=== PATIENT | female | born 1950 | race Caucasian/White ===

== ENCOUNTER 2017-08-04 07:55 | Inpatient (IN) | payer MEDICARE, OTHER ==
[~2017-08-04] VITALS: Ht 167.6 cm; Wt 100.0 kg
[2017-08-04] MEDS ORDERED: DICYCLOMINE 20 MG INJ IM ONE (08:00)
[2017-08-04] MEDS ORDERED: ONDANSETRON 4 MG INJ IV STA (08:00)
[2017-08-04] MEDS ORDERED: KETOROLAC 15 MG INJ IV STA (08:00)
[2017-08-04] MEDS ORDERED: ACETAMINOPHEN 325 MG TAB PO ONE (08:00)
[2017-08-04] MEDS ORDERED: SOD CHLORIDE 0.9% 1,000 ML IV STA (08:00)
--- NOTE | 2017-08-04 08:12 | ERD ---
ER Documentation Chief Complaint Chief Complaint NAUSEA AND VOMITING WITH FEVERS SINCE LAST NIGHT. NO COUGH OR CONGESTION HPI This is a 66-year-old female who is a very poor and limited historian. She has a history of diabetes appears to be [id number]. The patient presents with less than 24 hours of nonbloody nonbilious emesis with fevers, myalgias. She denies any recent travel, sick contacts, antibiotics. The patient describes occasional crampy abdominal pain. She states flu vaccination 2 weeks ago. She denies any cough or shortness of breath, no chest pain. No diarrhea or constipation. ROS All systems reviewed and are negative except as per history of present illness. Medications Home Meds Reported Medications Valsartan* (Diovan*) 160 Mg Tablet, 160 MG PO DAILY, TAB 08/04/17 Canagliflozin (Invokana) 100 Mg Tablet, 100 MG PO DAILY, TAB 08/04/17 Linagliptin (TRADJENTA) 5 Mg Tablet, 5 MG PO DAILY, TAB 08/04/17 Glipizide* (Glipizide*) 5 Mg Tablet, 5 MG PO BID, TAB 08/04/17 Metformin* (Glucophage*) 1,000 Mg Tablet, 1000 MG PO BID, #60 TAB 08/04/17 Allergies Allergies: Coded Allergies: No Known Drug Allergies (Verified Allergy, Unknown, 08/04/17) PMhx/Soc Diabetes FmHx Family History: diabetes Physical Exam Vitals Vital Signs Date Time Temp Pulse Resp B/P Pulse Ox O2 Delivery O2 Flow Rate FiO2 08/04/17 09:26 100.5 89 121/61 94 Room Air 08/04/17 08:02 101.7 102 18 130/88 93 Physical Exam General: Slightly uncomfortable Head: Normocephalic, atraumatic. Eyes: Pupils equally reactive, EOM intact ENT: Dry mucous membranes Neck: Supple, no lymphadenopathy Respiratory: Lungs clear bilaterally, no distress Cardiovascular: RRR, no murmurs, rubs, or gallops Abdominal: Soft, non-tender, non-distended, no peritoneal signs no tenderness to McBurney's point, negative Cruz sign : Deferred MSK: No edema, no unilateral swelling, 5/5 strength Neurologic: Alert and oriented, moving all extremities, normal speech, no focal weakness, no cerebellar signs Skin: No rash Psych: Normal mood Result Diagram: 08/04/17 0815 08/04/17 0815 Results 24 hrs Laboratory Tests Test 08/04/17 08:15 08/04/17 08:30 08/04/17 10:05 White Blood Count 1.710^3/ul Red Blood Count 4.4710^6/ul Hemoglobin 13.2g/dl Hematocrit 40.4% Mean Corpuscular Volume 90.4fl Mean Corpuscular Hemoglobin 29.5pg Mean Corpuscular Hemoglobin Concent 32.7g/dl Red Cell Distribution Width 13.0% Platelet Count 03556^3/UL Mean Platelet Volume 10.6fl Neutrophils % % Segmented Neutrophils % (Manual) 39% Band Neutrophils % (Manual) 32% Lymphocytes % % Lymphocytes % (Manual) 28% Reactive Lymphocytes % (Manual) 2% Monocytes % % Eosinophils % % Basophils % % Nucleated Red Blood Cells % 1% Neutrophils # 10^3/ul Neutrophils # (Manual) 0.710^3/ul Band Neutrophils # 0.510^3/ul Absolute Lymphocytes (Manual) 0.410^3/ul Lymphocytes # 10^3/ul Reactive Lymphocytes # 0.010^3/ul Monocytes # 10^3/ul Eosinophils # 10^3/ul Basophils # 10^3/ul Nucleated Red Blood Cells # 10^3/ul Platelet Estimate NORMAL Platelet Morphology Comment @See below Polychromasia 3+ Sodium Level 140mmol/L Potassium Level 4.0mmol/L Chloride Level 105mmol/L Carbon Dioxide Level 20mmol/L Anion Gap 19 Blood Urea Nitrogen 18mg/dl Creatinine 0.92mg/dl Glucose Level 238mg/dl Calcium Level 9.2mg/dl Total Bilirubin 1.0mg/dl Direct Bilirubin 0.00mg/dl Indirect Bilirubin 1.0mg/dl Aspartate Amino Transf (AST/SGOT) 47IU/L Alanine Aminotransferase (ALT/SGPT) 67IU/L Alkaline Phosphatase 86IU/L Total Protein 6.9g/dl Albumin 3.6g/dl Globulin 3.30g/dl Albumin/Globulin Ratio 1.09 Lipase 92U/L Lactic Acid Level 3.9mmol/L Urine Color YELLOW Urine Clarity SLIGHTLY CLOUDY Urine pH 5.0 Urine Specific [place] 1.017 Urine Ketones TRACEmg/dL Urine Nitrite POSITIVEmg/dL Urine Bilirubin NEGATIVEmg/dL Urine Urobilinogen NEGATIVEmg/dL Urine Leukocyte Esterase 1+Debra/ul Urine Microscopic RBC 3/HPF Urine Microscopic WBC 47/HPF Urine Squamous Epithelial Cells FEW/HPF Urine Bacteria FEW/HPF Urine Hemoglobin 2+mg/dL Urine Glucose 3+mg/dL Urine Total Protein 1+mg/dl Current Medications Medications (Trade) Dose Ordered Sig/Lili Route PRN Reason Start Time Stop Time Status Last Admin Dose Admin Sodium Chloride (NS) 1,000 ml @ 1,000 mls/hr Q1H STAT IV 08/04/17 08:00 08/04/17 08:59 DC 08/04/17 08:22 Ondansetron HCl (Zofran Inj) 4 mg ONCE STAT IV 08/04/17 08:00 08/04/17 08:04 DC 08/04/17 08:21 Ketorolac Tromethamine (Toradol) 15 mg ONCE STAT IV 08/04/17 08:00 08/04/17 08:04 DC 08/04/17 08:21 Dicyclomine HCl (Bentyl) 10 mg ONCE ONCE IM 08/04/17 08:00 08/04/17 08:04 DC 08/04/17 09:35 Acetaminophen (Tylenol Tab) 650 mg ONCE ONCE PO 08/04/17 08:00 08/04/17 08:04 DC 08/04/17 08:21 Sodium Chloride 1810 ml 1,810 ml BOLUS OVER 2 HOURS STAT IV* 08/04/17 08:36 08/04/17 08:38 DC 08/04/17 09:25 Cefepime HCl (Maxipime 1gm/50 ml (Pmx)) 50 ml @ 100 mls/hr ONCE ONCE IVPB 08/04/17 09:00 08/04/17 09:33 DC 08/04/17 10:18 Ondansetron HCl (Zofran Inj) 4 mg BRIDGE ORDER PRN IV NAUSEA AND/OR VOMITING 08/04/17 12:00 08/05/17 11:59 Acetaminophen (Tylenol Tab) 650 mg ER BRIDGE PRN PO MILD PAIN/FEVER 08/04/17 12:00 08/05/17 11:59 Procedures/MDM EKG, MONITORS, & DIAGNOSTIC IMAGING: Chest x-ray: I reviewed and interpreted a 1 view of the chest Mediastinum: No enlargement Cardiac silhouette: No cardiomegaly Airspace: Clear lung mi bilaterally without evidence of pneumothorax Bones: No evidence of fracture CT abdomen and pelvis: Preliminary read by Dr. Rendon reveals possible pyelonephritis but no other acute intra-abdominal process LAB INTERPRETATION: Neutropenia is noted with leukopenia and ANC significantly low, no blasts, normal hemoglobin and platelets. Lactic acid elevation, urinary tract infection MEDICAL DECISION MAKING: This patient presents with fever, myalgias, nausea and vomiting. I believe her constellation her symptoms are consistent with likely viral process or influenza -like illness. However, given the patient's age, history of diabetes, atypical infection in the abdomen may be present this way. I believe the patient will benefit from laboratory testing, diagnostic imaging including CT imaging of the abdomen and pelvis. Symptom control with antipyretics, fluids and nausea control be reasonable. ER COURSE: The patient was found to have leukopenia and neutropenia. Given her fever this is consistent with neutropenic fever. This is possibly related to viral suppression. However, given these findings I believe inpatient hospitalization is appropriate. I spoke to Dr. Messer, who recommended peripheral smear. I spoke to the laborer laboratory who will order this for pathology review. She agrees that this is most likely viral suppression but recommends close observation and trending at this point. Empiric antibiotics provided in the form of cefepime. The patient was also found to have a urinary tract infection with elevated lactic acid. This is consistent with severe sepsis. The patient' s blood pressure has remained stable. She does not meet criteria for septic shock. The patient was provided with a 30 cc/kg bolus of saline, antipyretics, antibiotics and she will be hospitalized for further investigation, culture monitoring. The patient was advised and is agreeable. She is mentating well at this point. I kept the patient and/or family informed of laboratory and diagnostic imaging results throughout the emergency room course. DISPOSITION PLAN: Medical surgical admission CONSULTATION: Accepting care team and consultations: I discussed the current laboratory data, diagnostic imaging and emergency care provided. Admitting team: Dr. Boss Admitting team indication: Insurance directed Consulting services: Hematology oncology Dr. Messer Sepsis Documentation: Patient's infectious symptoms have not stabilized and the patient is at risk of rapid decompensation. The patient will be admitted for careful hydration, antibiotic therapy, and infectious source control. SEVERE SEPSIS CRITERIA: Infectious source: Urinary tract infection End organ damage indicated by: [Lactate > 2.0 mmol/L SEPSIS MANAGEMENT Time of recognition of severe sepsis/septic shock: 10:53 AM once urinalysis resulted 3 HOUR BUNDLE Blood cultures x 2 before broad-spectrum antibiotics: Yes 30 ml/kg NS bolus Completed Initial lactate greater than 3 Repeat lactate pending repeat SEPTIC SHOCK ASSESSMENT: No lactic acid > 4.0 No persistent hypotension (SBP < 90 or 40 mmHg drop, MAP < 65) despite 30 mL/kg IV fluid bolus VOLUME REASSESSMENT FOR SEPTIC SHOCK: Reevaluation Time: 11:30 AM Temperature of 100.5, heart rate 89 blood pressure 121/61 pulse ox 94 Heart Regular rate & rhythm Lungs No crackles Skin Warm & dry Cap Refill Less than 2 seconds Peripheral pulses Radially present PERSISTENT HYPOTENSION TREATMENT: Comfort care No Central line Not Required Vasopressor started Not required I considered further perfusion assessment with CVP measurement, SCVO2, bedside ultrasound volume assessment, passive leg raise, trial of further fluid bolus. And proceeded with 30 ml/kg fluid bolus of NSS, broad spectrum antbiotics, and admission. CRITICAL CARE Critical care time 41 minutes Emergent fluid management while maintaining close respiratory support. Provision of immediate and broad-spectrum antibiotic therapy. Simultaneous assessment for possible sources in order to direct targeted therapy. Consideration for invasive and chemical support to prevent cardiopulmonary collapse. Critical care time is independent of procedures performed. Departure Diagnosis: Primary Impression: Nausea and vomiting Vomiting type: unspecified Vomiting Intractability: non-intractable Qualified Code: R11.2 - Non-intractable vomiting with nausea, unspecified vomiting type Additional Impressions: Neutropenia Neutropenia type: unspecified Qualified Code: D70.9 - Neutropenia, unspecified type Severe sepsis Urinary tract infection Urinary tract infection type: acute pyelonephritis Qualified Code: N10 - Acute pyelonephritis Condition: Stable JOANN DE JESUS MD Aug 04, 2017 08:12
[2017-08-04 08:22] LABS: ABNORMAL IP MESSAGE 1; HEMATOCRIT 40.4 % (37.0-47.0); HEMOGLOBIN 13.2 g/dl (12.0-16.0); MEAN CORPUSCULAR HEMOGLOBIN 29.5 pg (29.0-33.0); MEAN CORPUSCULAR HGB CONC 32.7 g/dl (32.0-37.0); MEAN CORPUSCULAR VOLUME 90.4 fl (82.0-101.0); MEAN PLATELET VOLUME 10.6 fl (7.4-10.4); PLATELET COUNT 148 10^3/UL (140-415); RED BLOOD COUNT 4.47 10^6/ul (4.20-5.40); WHITE BLOOD COUNT 1.7 10^3/ul (4.8-10.8)
[2017-08-04 08:23] LABS: POSITIVE DIFF @See below
[2017-08-04] MEDS ORDERED: SODIUM CHLORIDE 0.9% 1L BAG IV* STA (08:36)
--- NOTE | 2017-08-04 08:42 | RADRPT ---
PROCEDURE: XR Chest. CLINICAL INDICATION: fever TECHNIQUE: Single frontal view of the chest was obtained COMPARISON: None FINDINGS: The heart and mediastinum are within normal limits. There is mild patchy bibasilar atelectasis. The lungs are otherwise clear. There is no pleural effusion or pneumothorax. The bones and soft tissue show no acute change. IMPRESSION: Mild patchy bibasilar atelectasis. Otherwise, no significant abnormalities are identified. RPTAT:AAJJ Physician Yoel Date Time Electronically viewed and signed by Zechariah Mandujano Physician on 08/04/2017 08:42 /
[2017-08-04 08:45] LABS: ALBUMIN 3.6 g/dl (3.3-4.9); ALBUMIN/GLOBULIN RATIO 1.09; CALCIUM 9.2 mg/dl (8.4-10.2); CREATININE 0.92 mg/dl (0.44-1.00); TOTAL PROTEIN 6.9 g/dl (6.1-8.1)
[2017-08-04 08:55] LABS: ERYTHROBLAST% (NRBC) (M) 1 % (0-0); PLATELET ESTIMATE NORMAL; POLYCHROMASIA 3+ (0-0); REACTIVE LYMPHOCYTES% (M) 2 % (0-0)
[2017-08-04] MEDS ORDERED: CEFEPIME 1GM/50 ML (PMX) 50 ML IVPB ONE (09:00)
[2017-08-04 10:53] LABS: ADD UMIC YES; UR ASCORBIC ACID NEGATIVE (NEGATIVE); UR BACTERIA FEW /HPF (NONE SEEN); UR BILIRUBIN (Dip) NEGATIVE (NEGATIVE); UR BLOOD (Dip) 2+ mg/dL (NEGATIVE); UR CLARITY SLIGHTLY CLOUDY (CLEAR); UR COLOR YELLOW (YELLOW); UR GLUCOSE (Dip) 3+ mg/dL (NEGATIVE); UR KETONES (Dip) TRACE mg/dL (NEGATIVE); UR LEUKOCYTE ESTERASE (Dip) 1+ Leu/ul (NEGATIVE); UR NITRITE (Dip) POSITIVE (NEGATIVE); UR RBC 3 /HPF (0-5); UR SPECIFIC GRAVITY (Dip) 1.017 (1.003-1.030); UR SQUAMOUS EPITHELIAL CELL FEW /HPF (FEW); UR TOTAL PROTEIN (Dip) 1+ mg/dl (NEGATIVE); UR UROBILINOGEN (Dip) NEGATIVE (NEGATIVE)
[2017-08-04] MEDS ORDERED: GLIP5TAB13 PO (11:00)
[2017-08-04] MEDS ORDERED: MTF1000T PO (11:00)
[2017-08-04] MEDS ORDERED: LINA5TAB PO (11:00)
[2017-08-04] MEDS ORDERED: CANA100T PO (11:00)
[2017-08-04] MEDS ORDERED: VALS160T20 PO (11:01)
[2017-08-04] MEDS ORDERED: ONDANSETRON 4 MG INJ IV PRN (12:00)
[2017-08-04] MEDS ORDERED: ACETAMINOPHEN 325 MG TAB PO PRN (12:00)
--- NOTE | 2017-08-04 12:37 | HP ---
Date/Time of Note Date/Time of Note DATE: 08/04/17 TIME: 12:37 Assessment/Plan VTE Prophylaxis VTE Prophylaxis Intervention: SCD's Assessment/Plan Chief Complaint/Hosp Course 66-year-old obese female with a past medical history of type 2 diabetes, hypertension presented to the emergency room for evaluation of fever and generalized weakness who was noted with sepsis with a positive urinalysis suggestive of acute urinary tract infection. 1. Severe sepsis with urinary tract infection. Status: Acute. -Admit as inpatient. -IV fluids, IV antibiotics -Follow-up CT abdomen and pelvis. -We will also consider ID consult for antibiotic management. 2. Neutropenia, this is likely secondary to underlying sepsis Status: Acute -Treatment as above. Will monitor. 3. Metabolic acidosis with sepsis. Status: Acute -We will treat with IV fluids. 4. Hyperglycemia with Type 2 diabetes Status: Chronic -Obtain A1c. -Resume Tradjenta. Accu-Cheks/ISS/Lantus. 5. Essential hypertension. Stable. Status: Chronic -Home medications. 6. Obesity. -Weight reduction advised. DVT prophylaxis: SCDs PUD prophylaxis: Pepcid. Rest of the management depend on hospital course. Approximately 60 minutes was spent on this history and physical. Next Patient is seen in collaboration with . Problems: HPI/ROS Admit Date/Time Admit Date/Time Hx of Present Illness This is a 66-year-old obese female with a past medical history of type 2 diabetes, hypertension, who presented to the emergency room with complaints of fevers and generalized weakness. Patient denied any recent travel or sick contact. She denied chest pain, shortness of breath, nausea, vomiting, abdominal pain, dizziness, loss of consciousness, headache, dysuria, hematuria, urinary frequency, urgency, dysuria, hematuria or other constitutional symptoms. In the emergency room, patient was noted with a WBC 1.7, anion gap 19, blood glucose 238, lactic acid 3.9. Patient also had a temperature 101.7. Patient's urine analysis was strongly suggestive of urinary tract infection. A CT abdomen and pelvis is pending. In the emergency room, patient was treated with cefepime, fluid resuscitation for sepsis and pain medications. She was then admitted for further evaluation. Please note that the emergency room MD has documented nausea, vomiting and abdominal pain which patient denied to me. Please note that patient is a poor historian. 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 ROS A 12 point review of system was assessed and is negative other than what is mentioned in HPI. PMH/Family/Social Past Medical History See HPI Past Surgical History See HPI Social History Patient denied history of alcohol, smoking or illicit drug use. Smoking Status: Never smoker Exam/Review of Systems Vital Signs Vitals Vital Signs Date Time Temp Pulse Resp B/P Pulse Ox O2 Delivery O2 Flow Rate FiO2 08/04/17 11:58 97.6 80 17 103/52 95 Nasal Cannula 2.0 Exam Exam General: Obese female, not in any acute distress . HEENT: Normocephalic, Atraumatic, No laceration or hematoma; Eyes: PEERL, Conjunctiva clear, Anicteric sclera Neck: Supple without any lymphadenopathy, nontender, no JVD, no carotid bruits, trachea midline, no thyromegaly Cardiac: S1, S2 auscultated, regular rhythm and rate, no mumurs or gallop Pulmonary: Normal respiratory effort. Chest clear to auscultation bilaterally, no adventitious breath sounds GI: Abdomen obese to inspection. Soft, non tender, non- distended, no masses, no rebound tenderness or guarding. Bowel sounds active on all four quadrants Genitourinary: Deferred Extremities: No cyanosis, clubbing, or edema. Pulses [2+] bilaterally. Full ROM on all four extremities. No focal weakness appreciated. Neurologic: Alert to person, place, time, and situation. Skin: Clean,dry, and intact. No ecchymosis, no rashes, or lesions Labs Result Diagram: 08/04/1715 08/04/17 0815 MIGDALIA EDWARD NP Aug 04, 2017 12:37
[2017-08-04] MEDS ORDERED: NACL 0.9% 3 ML SYG IV SCH (13:00)
[2017-08-04] MEDS ORDERED: Discontinue current oral sulfonylureas (glyburide, glipizide, and/or glimepiride) prior to XX ONE (13:00)
[2017-08-04] MEDS ORDERED: HYPOGLYCEMIA PROTOCOL when Glucose is <70 mg/dL or symptomatic <90 mg/dL. XX ONE (13:00)
[2017-08-04] MEDS ORDERED: ACETAMINOPHEN 650 MG SUPP PR PRN (13:00)
[2017-08-04] MEDS ORDERED: DEXTROSE 50% 50 ML SYRINGE IV PRN ×2 (14:00)
[2017-08-04] MEDS ORDERED: GLUCAGON 1 MG INJ IM PRN (14:00)
[2017-08-04] MEDS ORDERED: GLUCOSE GEL 15 GRAM TUBE PO PRN ×2 (14:00)
[2017-08-04] MEDS ORDERED: GLUCOSE GEL 15 GRAM TUBE BUCCAL PRN (14:00)
[2017-08-04 14:28] VITALS: TEMP 97.8
[2017-08-04] MEDS: SOD CHLORIDE 0.9% 1,000 ML IV SCH ×2 (15:18→22:33)
[2017-08-04 16:47] VITALS: Ht 167.6 cm; Wt 100.0 kg
--- NOTE | 2017-08-04 17:11 | CONS ---
DATE OF ADMISSION: 08/04/2017 DATE OF CONSULTATION: 08/04/2017 TYPE OF CONSULTATION: Infectious disease. REASON FOR CONSULTATION: Antibiotic management. HISTORY OF PRESENT ILLNESS: Therese Baker is a 66-year-old female with numerous problems who com es in now with fever and generalized weakness and is being seen for antibiotic management. Past pro blems include: 1. Adult-onset diabetes mellitus. 2. Hypertension. 3. Obesity. In the emergency room, white count was down to 1.7, H and H of 13.2 and 40.4, platelet count 148,000 . BUN and creatinine 18/0.92, blood sugar 238, sodium 140, potassium 4.0, chloride 105, CO2 of 20. As noted, BUN and creatinine were 18/0.92. Lactic acid was 3.9. Urine shows trace ketones, positi ve nitrite, 1+ leukocyte esterase, 47 white cells per high-power field. The patient was begun on ce fepime for a urinary tract infection. PAST MEDICAL HISTORY: Operations as outlined. FAMILY HISTORY: Noncontributory. SOCIAL HISTORY: She does not smoke, drink or abuse drugs. ALLERGIES: NONE TO PENICILLIN, SULFA OR FOODS. MEDICATIONS: Per chart. REVIEW OF SYSTEMS: As per HPI. PHYSICAL EXAMINATION: GENERAL: The patient is a markedly obese female who is alert, responsive, in no acute distress. VITAL SIGNS: Stable. She is afebrile. SKIN: Without generalized rash. HEENT: Within normal limits. NECK: Supple. LYMPH NODES: None palpable. CHEST: Decreased breath sounds at the bases. HEART: Without murmur or gallop. ABDOMEN: Soft, nontender, without organosplenomegaly or masses. EXTREMITIES: Without cyanosis, clubbing or edema. Pulses 1+ distal extremities. RECTAL AND GENITAL: Deferred. NEUROLOGIC: No focal neurological abnormality. IMAGING: Chest x-ray shows mild patchy bibasilar atelectasis, otherwise no significant abnormalitie s. IMPRESSION AND PLAN: The patient presents now with severe sepsis with a urinary tract infection, ne utropenia probably related to the sepsis, metabolic acidosis, lactic acidosis, essential hypertensio n. Will continue her on cefepime. Her blood pressure is currently stable. I will dictate my findi ngs to the hospitalist. Dictated By: KAMILA GARCIA MD, JD/YOLI Conf#: [id number] [facility]#: [id number] CC: KAVEH MCCALL MD;*[facility]*
[2017-08-04 17:16] LABS: PATH REVIEW CH
[2017-08-04] MEDS: INSULIN ASPART [NOVOLOG] 3 ML PEN SC SCH ×3 (17:52→21:00)
[2017-08-04 20:00] VITALS: BP 88/41; RESP 20
[2017-08-04] MEDS: INSULIN GLARGINE [LANtus] 3 ML PEN SC SCH (20:00)
[2017-08-04] MEDS: CEFEPIME 1GM/50 ML (PMX) 50 ML IVPB SCH (20:58)
[2017-08-04] MEDS: FAMOTIDINE 20 MG TAB PO SCH (20:58)
[2017-08-04 22:11] VITALS: BP 92/46; PULSE 75; RESP 16
[2017-08-05 02:00] VITALS: BP 96/55; RESP 20
[2017-08-05] MEDS: ACCU-CHEK XX SCH (02:17)
[2017-08-05 06:30] LABS: HEMATOCRIT 34.7 % (37.0-47.0); HEMOGLOBIN 11.1 g/dl (12.0-16.0); MEAN CORPUSCULAR VOLUME 93.8 fl (82.0-101.0); MEAN PLATELET VOLUME 11.7 fl (7.4-10.4); PLATELET COUNT 119 10^3/UL (140-415); RED CELL DISTRIBUTION WIDTH 13.8 % (11.5-14.5); WHITE BLOOD COUNT 11.5 10^3/ul (4.8-10.8)
[2017-08-05 06:58] LABS: POSITIVE DIFF @See below
[2017-08-05 07:04] LABS: ALBUMIN 2.8 g/dl (3.3-4.9); ALBUMIN/GLOBULIN RATIO 0.87; BILIRUBIN,INDIRECT 0.5 mg/dl (0-1.1); BILIRUBIN,TOTAL 0.5 mg/dl (0.2-1.3); CHOL/HDL RATIO 2.2 RATIO; CREATININE 0.93 mg/dl (0.44-1.00); MAGNESIUM 1.8 mg/dl (1.7-2.5); PHOSPHORUS 2.5 mg/dl (2.5-4.9); POTASSIUM 3.9 mmol/L (3.5-5.1)
[2017-08-05 07:52] VITALS: BP 120/57; RESP 18
[2017-08-05 07:59] LABS: THYROID STIMULATING HORMONE 1.22 MIU/L (0.465-4.680)
[2017-08-05] MEDS: INSULIN ASPART [NOVOLOG] 3 ML PEN SC SCH ×4 (08:00→21:00)
[2017-08-05] MEDS: FAMOTIDINE 20 MG TAB PO SCH ×2 (08:46→21:19)
[2017-08-05] MEDS: CEFEPIME 1GM/50 ML (PMX) 50 ML IVPB SCH ×2 (08:46→21:19)
[2017-08-05] MEDS: VALSARTAN 160 MG TAB PO SCH (08:48)
[2017-08-05] MEDS: LINAGLIPTIN 5 MG TABLET PO SCH (08:49)
--- NOTE | 2017-08-05 08:57 | RADRPT ---
PROCEDURE: CT Abdomen and Pelvis without contrast. CLINICAL INDICATION: Abdominal and pelvic pain. Urinary tract infection. TECHNIQUE: CT scan of the abdomen and pelvis without contrast was performed. Coronal and sagittal reformatted images were obtained from the axial source images. Images were reviewed on a high-resolu [employer] PACS workstation. Total exam DLP is 1438.71 mGy-cm. CTDIvol is 21.97 mGy. One or more of the following dose reduction techniques were used: Automated exposure control, adjustment of the mA and/ or kV according to patient size, use of iterative reconstruction technique. DICOM images are availab le. COMPARISON: None. FINDINGS: The lung bases are normal. There is no pleural effusion. The liver is normal in size and mildly diffusely decreased attenuation. There is no focal hepatic l esion. The gallbladder and bile ducts are normal. The spleen is normal in size. There is no focal splenic lesion. Both adrenals are normal with no enlargement or mass. The pancreas is unremarkable with no mass or evidence of pancreatitis. The right kidney is normal with no hydronephrosis, mass, or calculus. There are small left renal sin us cyst. There is mild left perinephric edema which may indicate pyelonephritis. There is no left re nal solid mass, hydronephrosis, or calculus. The abdominal aorta is not dilated. Calcification is present in the aorta consistent with atheroscle rosis. There is no retroperitoneal lymphadenopathy or mass. There is no pelvic lymphadenopathy or mass. The bladder and distal ureters are normal. The periappendiceal region is unremarkable with no evidence of appendicitis. The appendix is well se en and appears normal. The bowel and mesentery are normal. There is no free fluid or free gas. There are mild degenerative changes of the spine and hips. There is no fracture or lytic lesion. IMPRESSION: 1. Fatty metamorphosis of the liver. 2. Small left renal sinus cysts. 3. Mild left perinephric edema which may indicate pyelonephritis. Clinical correlation advised. 4. Atherosclerosis. 5. Normal appendix. 6. Mild degenerative changes of the spine and hips. 7. Otherwise unremarkable CT scan of the abdomen and pelvis. Call report: A call report of the findings was made to Dr. Oliver on 08/04/2017 at approximately 1030 hours. RPTAT: QQ .Refugio Rendon MD, MD Date Time Electronically viewed and signed by .Refugio Rendon MD, on 08/05/2017 08:56 .R/
[2017-08-05 11:02] LABS: ANISOCYTOSIS 1+ (0-0); EOSINOPHILS % (M) 2 % (0-7); METAMYELOCYTES %M 1 % (0-0); MONOCYTES % (M) 2 % (0-11); PLATELET ESTIMATE DECREASED; POIKILOCYTOSIS 2+ (0-0); POLYCHROMASIA 3+ (0-0)
--- NOTE | 2017-08-05 11:23 | PN ---
Date/Time of Note Date/Time of Note DATE: 08/05/17 TIME: 11:19 Assessment/Plan VTE Prophylaxis VTE Prophylaxis Intervention: ambulation, SCD's Lines/Catheters IV [facility]ter Type (from [facility]): Peripheral IV Assessment/Plan Chief Complaint/Hosp Course 66-year-old obese female with a past medical history of type 2 diabetes, hypertension presented to the emergency room for evaluation of fever and generalized weakness who was noted with sepsis with a positive urinalysis suggestive of acute urinary tract infection. 1. Acute pyelonephritis. Status: Acute. -Continue IV fluids, IV antibiotics -Follow-up cultures. 2. Sepsis with neutropenia, secondary to #1. Resolving. Status: Acute 3. Metabolic acidosis with sepsis. Resolved. Status: Acute 4. Hyperglycemia with Type 2 diabetes. A1c 6.5. Status: Chronic -Continue Tradjenta, Accu-Cheks/ISS/Lantus. -Carbohydrate controlled diet. 5. Essential hypertension. Stable. Status: Chronic -Continue home medications. 6. Obesity. -Weight reduction advised. 7. Fatty liver. -Weight reduction/lifestyle changes advised. Plan of care updated with patient's daughter Jessica and questions addressed to satisfaction. DVT prophylaxis: SCDs PUD prophylaxis: Pepcid. Patient is seen in collaboration with Dr. Harp. Problems: Subjective 24 Hr Interval Summary Free Text/Dictation Patient is doing well. No fevers. Denies nausea, vomiting, abdominal discomfort, dysuria or other symptoms. Exam/Review of Systems Vital Signs Vitals Vital Signs Date Time Temp Pulse Resp B/P Pulse Ox O2 Delivery O2 Flow Rate FiO2 08/05/17 07:52 98.8 69 18 120/57 94 08/04/17 22:11 Room Air 08/04/17 14:28 2.0 Intake and Output 08/04/17 08/04/17 08/05/17 15:00 23:00 07:00 Intake Total 600 ml 240 ml Balance 600 ml 240 ml Exam General: Obese female, not in any acute distress . HEENT: Normocephalic, Atraumatic, No laceration or hematoma; Eyes: PEERL, Conjunctiva clear, Anicteric sclera Neck: Supple without any lymphadenopathy, nontender, no JVD, no carotid bruits, trachea midline, no thyromegaly Cardiac: S1, S2 auscultated, regular rhythm and rate, no mumurs or gallop Pulmonary: Normal respiratory effort. Chest clear to auscultation bilaterally, no adventitious breath sounds GI: Abdomen obese to inspection. Soft, non tender, non- distended, no masses, no rebound tenderness or guarding. Bowel sounds active on all four quadrants Genitourinary: Deferred Extremities: No cyanosis, clubbing, or edema. Pulses [2+] bilaterally. Full ROM on all four extremities. No focal weakness appreciated. Neurologic: Alert to person, place, time, and situation. Skin: Clean,dry, and intact. No ecchymosis, no rashes, or lesions Results Result Diagram: 08/05/17 0547 08/05/17 0547 Results 24 hrs Laboratory Tests Test 08/04/17 11:30 08/04/17 15:49 08/04/17 17:26 08/04/17 21:00 Lactic Acid Level 2.4 *H 2.0 Bedside Glucose 192 149 Test 08/05/17 01:30 08/05/17 05:47 08/05/17 08:07 Bedside Glucose 116 124 White Blood Count 11.5 #H Red Blood Count 3.70 L Hemoglobin 11.1 L Hematocrit 34.7 L Mean Corpuscular Volume 93.8 Mean Corpuscular Hemoglobin 30.0 Mean Corpuscular Hemoglobin Concent 32.0 Red Cell Distribution Width 13.8 Platelet Count 119 L Mean Platelet Volume 11.7 H Neutrophils % Segmented Neutrophils % (Manual) 66 Band Neutrophils % (Manual) 20 H Lymphocytes % Lymphocytes % (Manual) 9 L Monocytes % Monocytes % (Manual) 2 Eosinophils % Eosinophils % (Manual) 2 Basophils % Metamyelocytes % (manual) 1 H Nucleated Red Blood Cells % 0.0 Neutrophils # Neutrophils # (Manual) 7.9 H Band Neutrophils # 2.3 H Absolute Lymphocytes (Manual) 1.0 Lymphocytes # Monocytes # Absolute Monocytes (Manual) 0.2 L Eosinophils # Basophils # Metamyelocytes # 0.1 H Nucleated Red Blood Cells # Platelet Estimate DECREASED Polychromasia 3+ Poikilocytosis 2+ Anisocytosis 1+ Sodium Level 138 Potassium Level 3.9 Chloride Level 108 Carbon Dioxide Level 22 Anion Gap 12 # Blood Urea Nitrogen 21 H Creatinine 0.93 Glucose Level 118 # Hemoglobin A1c 6.5 H Lactic Acid Level 1.0 Calcium Level 8.0 L Phosphorus Level 2.5 Magnesium Level 1.8 Total Bilirubin 0.5 Direct Bilirubin 0.00 Indirect Bilirubin 0.5 Aspartate Amino Transf (AST/SGOT) 49 H Alanine Aminotransferase (ALT/SGPT) 68 Alkaline Phosphatase 55 Total Protein 6.0 L Albumin 2.8 L Globulin 3.20 Albumin/Globulin Ratio 0.87 Triglycerides Level 103 Cholesterol Level 79 L LDL Cholesterol, Calculated 23 HDL Cholesterol 35 Cholesterol/HDL Ratio 2.2 Thyroid Stimulating Hormone (TSH) 1.220 Medications Medications Current Medications Sodium Chloride (NS) 1,000 ml @ 100 mls/hr Q10H IV Last administered on 00:00; Admin Dose 100 MLS/HR; Start 08/04/17 at 12:33 Ondansetron HCl (Zofran Inj) 4 mg Q6H PRN IV NAUSEA AND/OR VOMITING; Start 08/04/17 at 13:00 Acetaminophen (Tylenol Tab) 650 mg Q6H PRN PO PAIN LEVEL 1-3 OR FEVER; Start 08/04/17 at 13:00 Acetaminophen (Tylenol Supp) 650 mg Q6H PRN [place] PAIN LEVEL 1-3 OR FEVER; Start 08/04/17 at 13:00 Famotidine (Pepcid) 20 mg Q12 PO Last administered on 08/05/17 08:46; Admin Dose 20 MG; Start 08/04/17 at 21:00 Diagnostic Test (Pha) (Accu-Chek) 1 ea 02 XX Last administered on 08/05/17 02: 17; Admin Dose 1 EA; Start 08/05/17 at 02:00 Insulin Glargine (Lantus) 14 unit DAILY@20 SC ; Start 08/04/17 at 20:00 Linagliptin (Tradjenta) 5 mg DAILY PO ; Start 08/05/17 at 09:00 Valsartan 160 mg 160 mg DAILY PO ; Start 08/05/17 at 09:00 Cefepime HCl (Maxipime 1gm/50 ml (Pmx)) 50 ml @ 100 mls/hr Q12 IVPB Last administered on 08/05/17 08:46; Admin Dose 100 MLS/HR; Start 08/04/17 at 21:00 Miscellaneous Information 1 ea NOTE XX ; Start 08/04/17 at 14:00 Glucose (Glutose) 15 gm Q15M PRN PO DECREASED GLUCOSE; Start 08/04/17 at 14:00 Glucose (Glutose) 22.5 gm Q15M PRN PO DECREASED GLUCOSE; Start 08/04/17 at 14: 00 Dextrose (D50w Syringe) 25 ml Q15M PRN IV DECREASED GLUCOSE; Start 08/04/17 at 14:00 Dextrose (D50w Syringe) 50 ml Q15M PRN IV DECREASED GLUCOSE; Start 08/04/17 at 14:00 Glucagon (Glucagen) 1 mg Q15M PRN IM DECREASED GLUCOSE; Start 08/04/17 at 14:00 Glucose (Glutose) 15 gm Q15M PRN BUCCAL DECREASED GLUCOSE; Start 08/04/17 at 14 :00 Influenza Virus Vaccine (Fluzone) 0.5 ml ONCE ONCE IM* ; Start 08/06/17 at 17: 30; Stop 08/06/17 at 17:31 MIGDALIA EDWARD NP Aug 05, 2017 11:23
[2017-08-05] MEDS: SOD CHLORIDE 0.9% 1,000 ML IV SCH ×2 (12:06)
[2017-08-05 14:07] VITALS: BP 134/64; RESP 19
--- NOTE | 2017-08-05 16:19 | CONS ---
Date/Time of Note Date/Time of Note DATE: 08/05/17 TIME: 16:19 Assessment/Plan Assessment/Plan Chief Complaint/Hosp Course ID PROGRESS NOTE TOTAL ABX DAY CURRENT ABX=> Cefepime 24H INTERVAL SUMMARY * VSS, NAD, fever resolved * 08/04/17 BCx (+)2/2 bottles GNR -> Pending; UTI Cx (+) GNR -> Pending * INFLUENZA A & B BY EIA Final INFLU A&B BY EIA INFLUENZA A NEGATIVE (Ref Range Neg) INFLUENZA B NEGATIVE (Ref Range Neg) EXAM GENERAL: VSS, NAD HEENT: Unremarkable NECK: Supple, full ROM CHEST: Rise symmetrical, without dyspnea on observation ABDOMEN: Soft, NT EXTREMITIES: Warm SKIN: No diaphoresis, no rash ID ASSESSMENT: 66 yo obese F admit with: 1. Severe sepsis w/ FEVERS 101.7, tachycardia, leukopenia 1.7 w/32% bandemia - > now leukocytosis WBC 11.3, Lactic acidosis @ 3.9-> now 2.4 => GNR UTI + Septicemia * (+)GNR septicemia 08/04/17 BCx (+)2/2 bottles GNR -> Pending; 2. UTI Cx (+) GNR -> Pending 3. Diabetes 4. HTN INVASIVES: PIV ABX ALLERGY: KNDA CURRENT ABX=> Cefepime ID PLAN 1. Continue current ABX -> await final ID GNR 2. She will need at least 14 days ABX for (+)BCx, await final micro for final ABX recommendations . . Problems: Consultation Date/Type/Reason Admit Date/Time Aug 04, 2017 at 11:33 Initial Consult Date Exam/Review of Systems Vital Signs Vitals Vital Signs Date Time Temp Pulse Resp B/P Pulse Ox O2 Delivery O2 Flow Rate FiO2 08/05/17 14:07 98.2 81 19 134/64 92 08/04/17 22:11 Room Air 08/04/17 14:28 2.0 Intake and Output 08/04/17 08/04/17 08/05/17 14:59 22:59 06:59 Intake Total 600 ml 240 ml Balance 600 ml 240 ml Results Result Diagram: 08/05/17 0547 08/05/17 0547 Results 24 hrs Laboratory Tests Test 08/04/17 17:26 08/04/17 21:00 12/9/17 01:30 08/05/17 05:47 Bedside Glucose 192 149 116 White Blood Count 11.5 #H Red Blood Count 3.70 L Hemoglobin 11.1 L Hematocrit 34.7 L Mean Corpuscular Volume 93.8 Mean Corpuscular Hemoglobin 30.0 Mean Corpuscular Hemoglobin Concent 32.0 Red Cell Distribution Width 13.8 Platelet Count 119 L Mean Platelet Volume 11.7 H Neutrophils % Segmented Neutrophils % (Manual) 66 Band Neutrophils % (Manual) 20 H Lymphocytes % Lymphocytes % (Manual) 9 L Monocytes % Monocytes % (Manual) 2 Eosinophils % Eosinophils % (Manual) 2 Basophils % Metamyelocytes % (manual) 1 H Nucleated Red Blood Cells % 0.0 Neutrophils # Neutrophils # (Manual) 7.9 H Band Neutrophils # 2.3 H Absolute Lymphocytes (Manual) 1.0 Lymphocytes # Monocytes # Absolute Monocytes (Manual) 0.2 L Eosinophils # Basophils # Metamyelocytes # 0.1 H Nucleated Red Blood Cells # Platelet Estimate DECREASED Polychromasia 3+ Poikilocytosis 2+ Anisocytosis 1+ Sodium Level 138 Potassium Level 3.9 Chloride Level 108 Carbon Dioxide Level 22 Anion Gap 12 # Blood Urea Nitrogen 21 H Creatinine 0.93 Glucose Level 118 # Hemoglobin A1c 6.5 H Lactic Acid Level 1.0 Calcium Level 8.0 L Phosphorus Level 2.5 Magnesium Level 1.8 Total Bilirubin 0.5 Direct Bilirubin 0.00 Indirect Bilirubin 0.5 Aspartate Amino Transf (AST/SGOT) 49 H Alanine Aminotransferase (ALT/SGPT) 68 Alkaline Phosphatase 55 Total Protein 6.0 L Albumin 2.8 L Globulin 3.20 Albumin/Globulin Ratio 0.87 Triglycerides Level 103 Cholesterol Level 79 L LDL Cholesterol, Calculated 23 HDL Cholesterol 35 Cholesterol/HDL Ratio 2.2 Thyroid Stimulating Hormone (TSH) 1.220 Test 08/05/17 08:07 08/05/17 11:59 Bedside Glucose 124 156 Medications Medications Current Medications Sodium Chloride (NS) 1,000 ml @ 100 mls/hr Q10H IV Last administered on t 12:06; Admin Dose 100 MLS/HR; Start 08/04/17 at 12:33 Ondansetron HCl (Zofran Inj) 4 mg Q6H PRN IV NAUSEA AND/OR VOMITING; Start 08/04/17 at 13:00 Acetaminophen (Tylenol Tab) 650 mg Q6H PRN PO PAIN LEVEL 1-3 OR FEVER; Start 08/04/17 at 13:00 Acetaminophen (Tylenol Supp) 650 mg Q6H PRN [place] PAIN LEVEL 1-3 OR FEVER; Start 08/04/17 at 13:00 Famotidine (Pepcid) 20 mg Q12 PO Last administered on 08/05/17 08:46; Admin Dose 20 MG; Start 08/04/17 at 21:00 Diagnostic Test (Pha) (Accu-Chek) 1 ea 02 XX Last administered on 08/05/17 02: 17; Admin Dose 1 EA; Start 08/05/17 at 02:00 Insulin Glargine (Lantus) 14 unit DAILY@20 SC ; Start 08/04/17 at 20:00 Linagliptin (Tradjenta) 5 mg DAILY PO ; Start 08/05/17 at 09:00 Valsartan 160 mg 160 mg DAILY PO ; Start 08/05/17 at 09:00 Cefepime HCl (Maxipime 1gm/50 ml (Pmx)) 50 ml @ 100 mls/hr Q12 IVPB Last administered on 08/05/17 08:46; Admin Dose 100 MLS/HR; Start 08/04/17 at 21:00 Miscellaneous Information 1 ea NOTE XX ; Start 08/04/17 at 14:00 Glucose (Glutose) 15 gm Q15M PRN PO DECREASED GLUCOSE; Start 08/04/17 at 14:00 Glucose (Glutose) 22.5 gm Q15M PRN PO DECREASED GLUCOSE; Start 08/04/17 at 14: 00 Dextrose (D50w Syringe) 25 ml Q15M PRN IV DECREASED GLUCOSE; Start 08/04/17 at 14:00 Dextrose (D50w Syringe) 50 ml Q15M PRN IV DECREASED GLUCOSE; Start 08/04/17 at 14:00 Glucagon (Glucagen) 1 mg Q15M PRN IM DECREASED GLUCOSE; Start 08/04/17 at 14:00 Glucose (Glutose) 15 gm Q15M PRN BUCCAL DECREASED GLUCOSE; Start 08/04/17 at 14 :00 Influenza Virus Vaccine (Fluzone) 0.5 ml ONCE ONCE IM* ; Start 08/06/17 at 17: 30; Stop 08/06/17 at 17:31 SHERRON NOLAN NP Aug 05, 2017 16:19
[2017-08-05] MEDS: ONDANSETRON 4 MG INJ IV PRN (18:21)
[2017-08-05] MEDS: ACETAMINOPHEN 325 MG TAB PO PRN (19:37)
[2017-08-05 19:45] VITALS: BP 145/69; RESP 18
[2017-08-05] MEDS: INSULIN GLARGINE [LANtus] 3 ML PEN SC SCH ×2 (21:00→21:21)
--- NOTE | 2017-08-06 01:06 | CONS ---
Date/Time of Note Date/Time of Note DATE: 08/06/17 TIME: 00:59 Assessment/Plan Assessment/Plan Chief Complaint/Hosp Course 66 yo F with PMH HTN, obesity, DM with fevers and generalized weakness found to have GNR UTI with sepsis and neutropenia. # Neutropenic fever -Interestingly when patient was admitted she had neutropenic fever with left shift indicating that the patient had neutropenic fever due to sepsis from likely GNR UTI. Patient had immature cells such as bands and hgb and plt were normal indicating this is unlikely a bone marrow production issue. -Furthermore patient's counts today show a leukocytosis instead of a neutropenia indicating her body has a reactive leukocytosis to fight her infection. -No need for bone marrow biopsy at this as counts have reversed it's course. -Hold off on flow cytometry for now as if she had a bone marrow issues, she would be pancytopenic. -Patient should improve as her infection is controlled; defer antibiotics to ID. Thank you to Dr. Mccall for allowing me to participate in the care of this patient. Problems: Consultation Date/Type/Reason Admit Date/Time Aug 04, 2017 at 11:33 Date of Consultation: Aug 05, 2017 Type of Consultation: hematology Reason for Consultation neutropenic fever Referring Provider: KAVEH MCCALL Hx of Present Illness 66 yo F with PMH HTN, obesity, DM who was in her normal state of health until 3 days ago when she experienced weakness, decreased appetite along with fevers. Patient denied any hematuria or shortness of breath or cough. She stated she had associated symptoms of nausea but no vomiting. She denies any dysuria or hematuria. She states that this has never happened to her before. She was evaluated in the ER with a fever of T: 101.7. Upon checking labs, her WBC: 1.7 , Hgb: 13.2, and plt 148. Differential included included some bands and left shift in nature. She was never told in the past of having low white count. No sick contact. Further workup showed a GNR UTI with sepsis. We are consulted for further evaluation of her neutropenic fever. PMH: as above PSxH: none SH: denies tobacco, ETOH, or IVDA. FH: denies any blood disorders in the family. Meds: see list All: NKDA Constitutional: febrile Social History Smoking Status: Never smoker Exam/Review of Systems Vital Signs Vitals Vital Signs Date Time Temp Pulse Resp B/P Pulse Ox O2 Delivery O2 Flow Rate FiO2 08/05/17 19:45 97.4 69 18 145/69 95 08/04/17 22:11 Room Air 08/04/17 14:28 2.0 Intake and Output 08/05/17 08/05/17 08/06/17 14:59 22:59 06:59 Intake Total 1050 ml 1200 ml Balance 1050 ml 1200 ml Exam Constitutional: alert, oriented Psych: no complaints Head: atraumatic, normocephalic Eyes: EOMI, nl conjunctiva, nl lids, nl sclera ENMT: mucosa pink and moist, nl external ears & nose, nl lips & teeth, nl nasal mucosa & septum Neck: non-tender, supple Respiratory: clear to auscultation, normal air movement Cardiovascular: nl pulses, regular rate and rhythm Gastrointestinal: nl liver, spleen, non-tender, soft Musculoskeletal: nl extremities to inspection Extremities: normal pulses Neurological: nl mental status, nl speech, nl strength Lymph: nl lymph nodes Results Result Diagram: 08/05/17 0547 08/05/17 0547 Results 24 hrs Laboratory Tests Test 08/05/17 01:30 08/05/17 05:47 08/05/17 08:07 08/05/17 11:59 Bedside Glucose 116 124 156 White Blood Count 11.5 #H Red Blood Count 3.70 L Hemoglobin 11.1 L Hematocrit 34.7 L Mean Corpuscular Volume 93.8 Mean Corpuscular Hemoglobin 30.0 Mean Corpuscular Hemoglobin Concent 32.0 Red Cell Distribution Width 13.8 Platelet Count 119 L Mean Platelet Volume 11.7 H Neutrophils % Segmented Neutrophils % (Manual) 66 Band Neutrophils % (Manual) 20 H Lymphocytes % Lymphocytes % (Manual) 9 L Monocytes % Monocytes % (Manual) 2 Eosinophils % Eosinophils % (Manual) 2 Basophils % Metamyelocytes % (manual) 1 H Nucleated Red Blood Cells % 0.0 Neutrophils # Neutrophils # (Manual) 7.9 H Band Neutrophils # 2.3 H Absolute Lymphocytes (Manual) 1.0 Lymphocytes # Monocytes # Absolute Monocytes (Manual) 0.2 L Eosinophils # Basophils # Metamyelocytes # 0.1 H Nucleated Red Blood Cells # Platelet Estimate DECREASED Polychromasia 3+ Poikilocytosis 2+ Anisocytosis 1+ Sodium Level 138 Potassium Level 3.9 Chloride Level 108 Carbon Dioxide Level 22 Anion Gap 12 # Blood Urea Nitrogen 21 H Creatinine 0.93 Glucose Level 118 # Hemoglobin A1c 6.5 H Lactic Acid Level 1.0 Calcium Level 8.0 L Phosphorus Level 2.5 Magnesium Level 1.8 Total Bilirubin 0.5 Direct Bilirubin 0.00 Indirect Bilirubin 0.5 Aspartate Amino Transf (AST/SGOT) 49 H Alanine Aminotransferase (ALT/SGPT) 68 Alkaline Phosphatase 55 Total Protein 6.0 L Albumin 2.8 L Globulin 3.20 Albumin/Globulin Ratio 0.87 Triglycerides Level 103 Cholesterol Level 79 L LDL Cholesterol, Calculated 23 HDL Cholesterol 35 Cholesterol/HDL Ratio 2.2 Thyroid Stimulating Hormone (TSH) 1.220 Test 08/05/17 17:32 08/05/17 21:09 Bedside Glucose 121 124 Medications Medications Current Medications Sodium Chloride (NS) 1,000 ml @ 100 mls/hr Q10H IV Last administered on 12:06; Admin Dose 100 MLS/HR; Start 08/04/17 at 12:33 Ondansetron HCl (Zofran Inj) 4 mg Q6H PRN IV NAUSEA AND/OR VOMITING Last administered on 08/05/17 18:21; Admin Dose 4 MG; Start 08/04/17 at 13:00 Acetaminophen (Tylenol Tab) 650 mg Q6H PRN PO PAIN LEVEL 1-3 OR FEVER Last administered on 08/05/17 19:37; Admin Dose 650 MG; Start 08/04/17 at 13:00 Acetaminophen (Tylenol Supp) 650 mg Q6H PRN [place] PAIN LEVEL 1-3 OR FEVER; Start 08/04/17 at 13:00 Famotidine (Pepcid) 20 mg Q12 PO Last administered on 08/05/17 21:19; Admin Dose 20 MG; Start 08/04/17 at 21:00 Diagnostic Test (Pha) (Accu-Chek) 1 ea 02 XX Last administered on 08/05/17 02: 17; Admin Dose 1 EA; Start 08/05/17 at 02:00 Insulin Glargine (Lantus) 14 unit DAILY@20 SC ; Start 08/04/17 at 20:00 Linagliptin (Tradjenta) 5 mg DAILY PO ; Start 08/05/17 at 09:00 Valsartan 160 mg 160 mg DAILY PO ; Start 08/05/17 at 09:00 Cefepime HCl (Maxipime 1gm/50 ml (Pmx)) 50 ml @ 100 mls/hr Q12 IVPB Last administered on 08/05/17t 21:19; Admin Dose 100 MLS/HR; Start 08/04/17 at 21:00 Miscellaneous Information 1 ea NOTE XX ; Start 08/04/17 at 14:00 Glucose (Glutose) 15 gm Q15M PRN PO DECREASED GLUCOSE; Start 08/04/17 at 14:00 Glucose (Glutose) 22.5 gm Q15M PRN PO DECREASED GLUCOSE; Start 08/04/17 at 14: 00 Dextrose (D50w Syringe) 25 ml Q15M PRN IV DECREASED GLUCOSE; Start 08/04/17 at 14:00 Dextrose (D50w Syringe) 50 ml Q15M PRN IV DECREASED GLUCOSE; Start 08/04/17 at 14:00 Glucagon (Glucagen) 1 mg Q15M PRN IM DECREASED GLUCOSE; Start 08/04/17 at 14:00 Glucose (Glutose) 15 gm Q15M PRN BUCCAL DECREASED GLUCOSE; Start 08/04/17 at 14 :00 Influenza Virus Vaccine (Fluzone) 0.5 ml ONCE ONCE IM* ; Start 08/06/17 at 17: 30; Stop 08/06/17 at 17:31 GAEL ROSE DO Aug 06, 2017 01:06
[2017-08-06] MEDS: ACCU-CHEK XX SCH (02:00)
[2017-08-06] MEDS: SOD CHLORIDE 0.9% 1,000 ML IV SCH ×2 (02:03→13:56)
[2017-08-06 02:10] VITALS: BP 115/98; RESP 20
[2017-08-06 05:58] LABS: BASOPHILS % 0.2 % (0.0-2.0); EOSINOPHILS # 0.3 10^3/ul (0.0-0.5); EOSINOPHILS % 3.6 % (0.0-7.0); HEMATOCRIT 36.8 % (37.0-47.0); HEMOGLOBIN 11.8 g/dl (12.0-16.0); LYMPHOCYTES # 1.1 10^3/ul (0.8-2.9); LYMPHOCYTES % 12.5 % (15.0-51.0); MEAN CORPUSCULAR HEMOGLOBIN 30.1 pg (29.0-33.0); MEAN CORPUSCULAR HGB CONC 32.1 g/dl (32.0-37.0); MEAN CORPUSCULAR VOLUME 93.9 fl (82.0-101.0); MEAN PLATELET VOLUME 11.8 fl (7.4-10.4); MONOCYTE # 0.7 10^3/ul (0.3-0.9); MONOCYTES % 8.1 % (0.0-11.0); NEUTROPHIL # 6.7 10^3/ul (1.6-7.5); NEUTROPHILS % 74.8 % (39.0-77.0); PLATELET COUNT 129 10^3/UL (140-415); RED BLOOD COUNT 3.92 10^6/ul (4.20-5.40); RED CELL DISTRIBUTION WIDTH 13.6 % (11.5-14.5)
[2017-08-06 06:33] LABS: CALCIUM 8.3 mg/dl (8.4-10.2); CREATININE 0.73 mg/dl (0.44-1.00); POTASSIUM 3.7 mmol/L (3.5-5.1)
[2017-08-06] MEDS: INSULIN ASPART [NOVOLOG] 3 ML PEN SC SCH ×4 (07:50→20:25)
[2017-08-06] MEDS: CEFEPIME 1GM/50 ML (PMX) 50 ML IVPB SCH (08:04)
[2017-08-06] MEDS: FAMOTIDINE 20 MG TAB PO SCH ×2 (08:05→20:25)
[2017-08-06] MEDS: LINAGLIPTIN 5 MG TABLET PO SCH (08:05)
[2017-08-06] MEDS: VALSARTAN 160 MG TAB PO SCH (08:05)
[2017-08-06 08:16] VITALS: BP 177/78; RESP 18
--- NOTE | 2017-08-06 09:53 | PN ---
Date/Time of Note Date/Time of Note DATE: 08/06/17 TIME: 09:49 Assessment/Plan VTE Prophylaxis VTE Prophylaxis Intervention: ambulation, SCD's Lines/Catheters IV C[facility]ter Type (from [facility] Peripheral IV Urinary Cath still in place: No Assessment/Plan Chief Complaint/Hosp Course 66-year-old obese female with a past medical history of type 2 diabetes, hypertension presented to the emergency room for evaluation of fever and generalized weakness who was noted with sepsis with a positive urinalysis suggestive of acute urinary tract infection. 1. Acute E. coli pyelonephritis. Status: Acute. -Continue IV fluids. Change antibiotics to IV Cipro based on sensitivity. 2. Sepsis with E. coli bacteremia, secondary to #1. Resolving. White count normalized. Status: Acute 3. Metabolic acidosis with sepsis. Resolved. Status: Acute 4. Hyperglycemia with Type 2 diabetes. A1c 6.5. Status: Chronic -Continue Tradjenta, Accu-Cheks/ISS. Titrate down Lantus by half to avoid too tight glycemic control. -Carbohydrate controlled diet. 5. Essential hypertension. Stable. Status: Chronic -Continue home medications. 6. Obesity. -Weight reduction advised. 7. Fatty liver. -Weight reduction/lifestyle changes advised. Plan of care updated with patient's daughter Jessica again today with possible plan for discharge in a.m. if patient is doing well. DVT prophylaxis: SCDs PUD prophylaxis: Pepcid. Patient is seen in collaboration with Dr. Harp. Problems: Subjective 24 Hr Interval Summary Free Text/Dictation Overall improving well. No fevers. Exam/Review of Systems Vital Signs Vitals Vital Signs Date Time Temp Pulse Resp B/P Pulse Ox O2 Delivery O2 Flow Rate FiO2 08/06/17 08:16 98.0 72 18 177/78 96 08/04/17 22:11 Room Air 08/04/17 14:28 2.0 Intake and Output 08/05/17 08/05/17 08/06/17 15:00 23:00 07:00 Intake Total 1050 ml 1250 ml 1100 ml Balance 1050 ml 1250 ml 1100 ml Exam General: Obese female, not in any acute distress . HEENT: Normocephalic, Atraumatic, No laceration or hematoma; Eyes: PEERL, Conjunctiva clear, Anicteric sclera Neck: Supple without any lymphadenopathy, nontender, no JVD, no carotid bruits, trachea midline, no thyromegaly Cardiac: S1, S2 auscultated, regular rhythm and rate, no mumurs or gallop Pulmonary: Normal respiratory effort. Chest clear to auscultation bilaterally, no adventitious breath sounds GI: Abdomen obese to inspection. Soft, non tender, non- distended, no masses, no rebound tenderness or guarding. Bowel sounds active on all four quadrants Genitourinary: Deferred Extremities: No cyanosis, clubbing, or edema. Pulses [2+] bilaterally. Full ROM on all four extremities. No focal weakness appreciated. Neurologic: Alert to person, place, time, and situation. Skin: Clean,dry, and intact. No ecchymosis, no rashes, or lesions Results Result Diagram: 08/06/1742608/06/17426 Results 24 hrs Laboratory Tests Test 08/05/17 11:59 08/05/17 17:32 08/05/17 21:09 08/06/17 04:27 Bedside Glucose 156 121 124 White Blood Count 9.0 # Red Blood Count 3.92 L Hemoglobin 11.8 L Hematocrit 36.8 L Mean Corpuscular Volume 93.9 Mean Corpuscular Hemoglobin 30.1 Mean Corpuscular Hemoglobin Concent 32.1 Red Cell Distribution Width 13.6 Platelet Count 129 L Mean Platelet Volume 11.8 H Neutrophils % 74.8 Lymphocytes % 12.5 L Monocytes % 8.1 Eosinophils % 3.6 Basophils % 0.2 Nucleated Red Blood Cells % 0.0 Neutrophils # 6.7 Lymphocytes # 1.1 Monocytes # 0.7 Eosinophils # 0.3 Basophils # 0.0 Nucleated Red Blood Cells # 0.0 Sodium Level 141 Potassium Level 3.7 Chloride Level 108 Carbon Dioxide Level 24 Anion Gap 13 Blood Urea Nitrogen 13 Creatinine 0.73 Glucose Level 120 Calcium Level 8.3 L Test 08/06/17 07:49 Bedside Glucose 117 Medications Medications Current Medications Sodium Chloride (NS) 1,000 ml @ 100 mls/hr Q10H IV Last administered on 02:03; Admin Dose 100 MLS/HR; Start 08/04/17 at 12:33 Ondansetron HCl (Zofran Inj) 4 mg Q6H PRN IV NAUSEA AND/OR VOMITING Last administered on 08/05/17 18:21; Admin Dose 4 MG; Start 08/04/17 at 13:00 Acetaminophen (Tylenol Tab) 650 mg Q6H PRN PO PAIN LEVEL 1-3 OR FEVER Last administered on 08/05/17 19:37; Admin Dose 650 MG; Start 08/04/17 at 13:00 Acetaminophen (Tylenol Supp) 650 mg Q6H PRN [place] PAIN LEVEL 1-3 OR FEVER; Start 08/04/17 at 13:00 Famotidine (Pepcid) 20 mg Q12 PO Last administered on 08/06/17 08:05; Admin Dose 20 MG; Start 08/04/17 at 21:00 Diagnostic Test (Pha) (Accu-Chek) 1 ea 02 XX Last administered on 08/05/17 02: 17; Admin Dose 1 EA; Start 08/05/17 at 02:00 Insulin Glargine (Lantus) 14 unit DAILY@20 SC ; Start 08/04/17 at 20:00 Linagliptin (Tradjenta) 5 mg DAILY PO Last administered on 08/06/17 08:05; Admin Dose 5 MG; Start 08/05/17 at 09:00 Valsartan 160 mg 160 mg DAILY PO Last administered on 08/06/17 08:05; Admin Dose 160 MG; Start 08/05/17 at 09:00 Cefepime HCl (Maxipime 1gm/50 ml (Pmx)) 50 ml @ 100 mls/hr Q12 IVPB Last administered on 08/06/17 08:04; Admin Dose 100 MLS/HR; Start 08/04/17 at 21:00 Miscellaneous Information 1 ea NOTE XX ; Start 08/04/17 at 14:00 Glucose (Glutose) 15 gm Q15M PRN PO DECREASED GLUCOSE; Start 08/04/17 at 14:00 Glucose (Glutose) 22.5 gm Q15M PRN PO DECREASED GLUCOSE; Start 08/04/17 at 14: 00 Dextrose (D50w Syringe) 25 ml Q15M PRN IV DECREASED GLUCOSE; Start 08/04/17 at 14:00 Dextrose (D50w Syringe) 50 ml Q15M PRN IV DECREASED GLUCOSE; Start 08/04/17 at 14:00 Glucagon (Glucagen) 1 mg Q15M PRN IM DECREASED GLUCOSE; Start 08/04/17 at 14:00 Glucose (Glutose) 15 gm Q15M PRN BUCCAL DECREASED GLUCOSE; Start 08/04/17 at 14 :00 Influenza Virus Vaccine (Fluzone) 0.5 ml ONCE ONCE IM* ; Start 08/06/17 at 17: 30; Stop 08/06/17 at 17:31 MIGDALIA EDWARD NP Aug 06, 2017 09:53
[2017-08-06] MEDS: CIPROFLOXACIN 400MG/D5W 200 ML IVPB SCH ×2 (10:42→20:25)
[2017-08-06] MEDS: ACETAMINOPHEN 325 MG TAB PO PRN (10:56)
[2017-08-06 10:59] VITALS: BP 137/63; PULSE 66
[2017-08-06 15:30] VITALS: BP_SYST 142; BP_SYST 178; BP_DIAS 60; BP_DIAS 65; RESP 18
[2017-08-06] MEDS ORDERED: INFLUENZA VIRUS VACCINE 0.5 ML SYG IM* ONE (17:30)
--- NOTE | 2017-08-06 18:07 | CONS ---
Date/Time of Note Date/Time of Note DATE: 08/06/17 TIME: 17:58 Assessment/Plan Assessment/Plan Chief Complaint/Hosp Course ID PROGRESS NOTE TOTAL ABX DAY CURRENT ABX=> Cefepime -> Changed to Cipro 24H INTERVAL SUMMARY * Awake, feels week, obese F, no fevers today, WBC normalized * 08/04/17 BCx (+)2/2 bottles GNR -> E COLI M.I.C. RX --------- --- AMPICILLIN 4 S CEFAZOLIN I CEFOTAXIME S CIPROFLOXACIN <=0.25 S GENTAMICIN <=1 S LEVOFLOXACIN <=0.12 S TOBRAMYCIN <=1 S TRIMETHOPRIM/SULFAMETHOXAZOLE <=20 S * UTI Cx (+) GNR -> URINE CULTURE Final Organism 1 ESCHERICHIA COLI COLONY COUNT >100,000 CFU/ml E COLI M.I.C. RX --------- --- AMPICILLIN <=2 S CEFAZOLIN S CEFOTAXIME S CIPROFLOXACIN <=0.25 S GENTAMICIN <=1 S LEVOFLOXACIN <=0.12 S NITROFURANTOIN <=16 S TOBRAMYCIN <=1 S TRIMETHOPRIM/SULFAMETHOXAZOLE <=20 S * INFLUENZA A & B BY EIA Final INFLU A&B BY EIA INFLUENZA A NEGATIVE (Ref Range Neg) INFLUENZA B NEGATIVE (Ref Range Neg) EXAM GENERAL: VSS, NAD HEENT: Unremarkable NECK: Supple, full ROM CHEST: Rise symmetrical, without dyspnea on observation ABDOMEN: Soft, NT EXTREMITIES: Warm SKIN: No diaphoresis, no rash ID ASSESSMENT: 66 yo obese F admit with: 1. Severe sepsis w/ FEVERS 101.7, tachycardia, leukopenia 1.7 w/32% bandemia - > now leukocytosis WBC 11.3, Lactic acidosis @ 3.9-> now 2.4 => GNR UTI + Septicemia * (+)GNR septicemia 08/04/17 BCx (+)2/2 bottles GNR -> E COLI 2. UTI Cx UTI Cx (+) GNR -> URINE CULTURE Final Organism 1 ESCHERICHIA COLI COLONY COUNT >100,000 CFU/ml 3. Diabetes 4. HTN INVASIVES: PIV ABX ALLERGY: KNDA CURRENT ABX=> Cefepime -> Changed to Cipro ID PLAN 1. Cefepime changed to Cipro = Narrow the ABX spectrum 2. She will need at least 14 days IV ABX for (+)BCx,-> Last day 08/17/17 * Alternatively, she may continue IV ABX for 5-7 days w/"PO Switch" to Cipro 850mg po Q12H to complete the 14 day course. . . Problems: Consultation Date/Type/Reason Admit Date/Time Aug 04, 2017 at 11:33 Type of Consultation: ID Referring Provider: KAVEH MCCALL Exam/Review of Systems Vital Signs Vitals Vital Signs Date Time Temp Pulse Resp B/P Pulse Ox O2 Delivery O2 Flow Rate FiO2 08/06/17 15:30 98.0 60 18 142/65 98 08/04/17 22:11 Room Air 08/04/17 14:28 2.0 Intake and Output 08/05/17 08/05/17 08/06/17 14:59 22:59 06:59 Intake Total 1050 ml 1250 ml 1100 ml Balance 1050 ml 1250 ml 1100 ml Results Result Diagram: 08/06/17 0427 08/06/17 0427 Results 24 hrs Laboratory Tests Test 08/05/17 21:09 08/06/17 04:27 08/06/17 07:49 08/06/17 12:02 Bedside Glucose 124 117 149 White Blood Count 9.0 # Red Blood Count 3.92 L Hemoglobin 11.8 L Hematocrit 36.8 L Mean Corpuscular Volume 93.9 Mean Corpuscular Hemoglobin 30.1 Mean Corpuscular Hemoglobin Concent 32.1 Red Cell Distribution Width 13.6 Platelet Count 129 L Mean Platelet Volume 11.8 H Neutrophils % 74.8 Lymphocytes % 12.5 L Monocytes % 8.1 Eosinophils % 3.6 Basophils % 0.2 Nucleated Red Blood Cells % 0.0 Neutrophils # 6.7 Lymphocytes # 1.1 Monocytes # 0.7 Eosinophils # 0.3 Basophils # 0.0 Nucleated Red Blood Cells # 0.0 Sodium Level 141 Potassium Level 3.7 Chloride Level 108 Carbon Dioxide Level 24 Anion Gap 13 Blood Urea Nitrogen 13 Creatinine 0.73 Glucose Level 120 Calcium Level 8.3 L Test 08/06/17 17:23 Bedside Glucose 125 Medications Medications Current Medications Sodium Chloride (NS) 1,000 ml @ 100 mls/hr Q10H IV Last administered on t 13:56; Admin Dose 100 MLS/HR; Start 08/04/17 at 12:33 Ondansetron HCl (Zofran Inj) 4 mg Q6H PRN IV NAUSEA AND/OR VOMITING Last administered on 08/05/17 18:21; Admin Dose 4 MG; Start 08/04/17 at 13:00 Acetaminophen (Tylenol Tab) 650 mg Q6H PRN PO PAIN LEVEL 1-3 OR FEVER Last administered on 08/06/17 10:56; Admin Dose 650 MG; Start 08/04/17 at 13:00 Acetaminophen (Tylenol Supp) 650 mg Q6H PRN [place] PAIN LEVEL 1-3 OR FEVER; Start 08/04/17 at 13:00 Famotidine (Pepcid) 20 mg Q12 PO Last administered on 08/06/17 08:05; Admin Dose 20 MG; Start 08/04/17 at 21:00 Diagnostic Test (Pha) (Accu-Chek) 1 ea 02 XX Last administered on 08/05/17 02: 17; Admin Dose 1 EA; Start 08/05/17 at 02:00 Linagliptin (Tradjenta) 5 mg DAILY PO Last administered on 08/06/17 08:05; Admin Dose 5 MG; Start 08/05/17 at 09:00 Valsartan (Diovan) 160 mg DAILY PO Last administered on 08/06/17 08:05; Admin Dose 160 MG; Start 08/05/17 at 09:00 Miscellaneous Information 1 ea NOTE XX ; Start 08/04/17 at 14:00 Glucose (Glutose) 15 gm Q15M PRN PO DECREASED GLUCOSE; Start 08/04/17 at 14:00 Glucose (Glutose) 22.5 gm Q15M PRN PO DECREASED GLUCOSE; Start 08/04/17 at 14: 00 Dextrose (D50w Syringe) 25 ml Q15M PRN IV DECREASED GLUCOSE; Start 08/04/17 at 14:00 Dextrose (D50w Syringe) 50 ml Q15M PRN IV DECREASED GLUCOSE; Start 08/04/17 at 14:00 Glucagon (Glucagen) 1 mg Q15M PRN IM DECREASED GLUCOSE; Start 08/04/17 at 14:00 Glucose 15 gm 15 gm Q15M PRN BUCCAL DECREASED GLUCOSE; Start 08/04/17 at 14:00 Ciprofloxacin/ Dextrose (Cipro Ivpb) 200 ml @ 200 mls/hr Q12 IVPB Last administered on 08/06/17t 10:42; Admin Dose 200 MLS/HR; Start 08/06/17 at 10: 00 Insulin Glargine (Lantus) 7 unit DAILY@20 SC ; Start 08/06/17 at 20:00 SHERRON NOLAN NP Aug 06, 2017 18:07
[2017-08-06] MEDS: INSULIN GLARGINE [LANtus] 3 ML PEN SC SCH (20:25)
[2017-08-06 20:53] VITALS: BP 133/63; RESP 16
[2017-08-07] MEDS: ACETAMINOPHEN 325 MG TAB PO PRN ×2 (01:33→20:20)
[2017-08-07] MEDS: ACCU-CHEK XX SCH (02:00)
[2017-08-07 03:14] VITALS: BP 120/56; RESP 16
[2017-08-07] MEDS: SOD CHLORIDE 0.9% 1,000 ML IV SCH ×3 (03:25→14:28)
[2017-08-07 05:21] LABS: BASOPHILS % 0.3 % (0.0-2.0); EOSINOPHILS # 0.3 10^3/ul (0.0-0.5); EOSINOPHILS % 3.7 % (0.0-7.0); HEMATOCRIT 35.1 % (37.0-47.0); HEMOGLOBIN 11.4 g/dl (12.0-16.0); LYMPHOCYTES # 1.3 10^3/ul (0.8-2.9); MEAN CORPUSCULAR HEMOGLOBIN 29.8 pg (29.0-33.0); MEAN CORPUSCULAR HGB CONC 32.5 g/dl (32.0-37.0); MEAN CORPUSCULAR VOLUME 91.9 fl (82.0-101.0); MONOCYTE # 0.8 10^3/ul (0.3-0.9); MONOCYTES % 10.7 % (0.0-11.0); NEUTROPHIL # 4.7 10^3/ul (1.6-7.5); NEUTROPHILS % 66.3 % (39.0-77.0); PLATELET COUNT 151 10^3/UL (140-415); RED BLOOD COUNT 3.82 10^6/ul (4.20-5.40); RED CELL DISTRIBUTION WIDTH 13.3 % (11.5-14.5); WHITE BLOOD COUNT 7.1 10^3/ul (4.8-10.8)
[2017-08-07 05:50] LABS: CALCIUM 8.3 mg/dl (8.4-10.2); CREATININE 0.74 mg/dl (0.44-1.00); POTASSIUM 3.9 mmol/L (3.5-5.1)
[2017-08-07] MEDS: INSULIN ASPART [NOVOLOG] 3 ML PEN SC SCH ×4 (07:40→20:28)
[2017-08-07 08:00] VITALS: BP 136/75; RESP 18
[2017-08-07] MEDS: VALSARTAN 160 MG TAB PO SCH (08:49)
[2017-08-07] MEDS: CIPROFLOXACIN 400MG/D5W 200 ML IVPB SCH (08:49)
[2017-08-07] MEDS: LINAGLIPTIN 5 MG TABLET PO SCH (08:49)
[2017-08-07] MEDS: FAMOTIDINE 20 MG TAB PO SCH ×2 (08:50→20:21)
--- NOTE | 2017-08-07 09:02 | PN ---
Date/Time of Note Date/Time of Note DATE: 08/07/17 TIME: 08:56 Assessment/Plan VTE Prophylaxis VTE Prophylaxis Intervention: ambulation Lines/Catheters IV Catheter Type (from [facility]): Peripheral IV Urinary Cath still in place: No Assessment/Plan Chief Complaint/Hosp Course 66-year-old obese female with a past medical history of type 2 diabetes, hypertension presented to the emergency room for evaluation of fever and generalized weakness who was noted with sepsis with a positive urinalysis suggestive of acute urinary tract infection. 1. Acute E. coli pyelonephritis. Status: Acute. -Continue IV fluids. On IV Cipro based on sensitivity. (Total days on antibiotic =4) 2. Sepsis with E. coli bacteremia, secondary to #1. Resolving. White count normalized. Status: Acute 3. Metabolic acidosis with sepsis. Resolved. Status: Acute 4.Type 2 diabetes. A1c 6.5. With good glycemic control. Status: Chronic -Continue Tradjenta, Accu-Cheks/ISS/low-dose Lantus. -Carbohydrate controlled diet. 5. Essential hypertension. Stable. Status: Chronic -Continue home medications. 6. Obesity. -Weight reduction advised. 7. Fatty liver. -Weight reduction/lifestyle changes advised. DC planning once cleared from ID standpoint. Current recommendation is to continue IV antibiotics for 5 days, w/"PO Switch" to Cipro 850mg po Q12H to complete the 14 day course. Plan of care updated with patient's daughter Jessica again today with possible plan for continuing IV antibiotics for another 2 days. DVT prophylaxis: SCDs/Ambulation PUD prophylaxis: Pepcid. Patient is seen in collaboration with Dr. Boss Problems: Subjective 24 Hr Interval Summary Free Text/Dictation Patient is doing well. No further fevers. Exam/Review of Systems Vital Signs Vitals Vital Signs Date Time Temp Pulse Resp B/P Pulse Ox O2 Delivery O2 Flow Rate FiO2 08/07/17 08:00 98.8 18 18 136/75 96 08/04/17 22:11 Room Air 08/04/17 14:28 2.0 Intake and Output 08/06/17 08/06/17 08/07/17 15:00 23:00 07:00 Intake Total 950 ml 1250 ml 1450 ml Balance 950 ml 1250 ml 1450 ml Exam General: Obese female, not in any acute distress . HEENT: Normocephalic, Atraumatic, No laceration or hematoma; Eyes: PEERL, Conjunctiva clear, Anicteric sclera Neck: Supple without any lymphadenopathy, nontender, no JVD, no carotid bruits, trachea midline, no thyromegaly Cardiac: S1, S2 auscultated, regular rhythm and rate, no mumurs or gallop Pulmonary: Normal respiratory effort. Chest clear to auscultation bilaterally, no adventitious breath sounds GI: Abdomen obese to inspection. Soft, non tender, non- distended, no masses, no rebound tenderness or guarding. Bowel sounds active on all four quadrants Genitourinary: Deferred Extremities: No cyanosis, clubbing, or edema. Pulses [2+] bilaterally. Full ROM on all four extremities. No focal weakness appreciated. Neurologic: Alert to person, place, time, and situation. Skin: Clean,dry, and intact. No ecchymosis, no rashes, or lesions Results Result Diagram: 08/07/17 0432 08/07/17 0432 Results 24 hrs Laboratory Tests Test 08/06/17 12:02 08/06/17 17:23 08/06/17 20:22 08/07/17 04:32 Bedside Glucose 149 125 157 White Blood Count 7.1 # Red Blood Count 3.82 L Hemoglobin 11.4 L Hematocrit 35.1 L Mean Corpuscular Volume 91.9 Mean Corpuscular Hemoglobin 29.8 Mean Corpuscular Hemoglobin Concent 32.5 Red Cell Distribution Width 13.3 Platelet Count 151 Mean Platelet Volume 12.0 H Neutrophils % 66.3 Lymphocytes % 18.0 Monocytes % 10.7 Eosinophils % 3.7 Basophils % 0.3 Nucleated Red Blood Cells % 0.0 Neutrophils # 4.7 Lymphocytes # 1.3 Monocytes # 0.8 Eosinophils # 0.3 Basophils # 0.0 Nucleated Red Blood Cells # 0.0 Sodium Level 140 Potassium Level 3.9 Chloride Level 106 Carbon Dioxide Level 26 Anion Gap 12 Blood Urea Nitrogen 11 Creatinine 0.74 Glucose Level 146 Calcium Level 8.3 L Test 08/07/17 07:40 Bedside Glucose 117 Medications Medications Current Medications Sodium Chloride (NS) 1,000 ml @ 100 mls/hr Q10H IV Last administered on t 03:25; Admin Dose 100 MLS/HR; Start 08/04/17 at 12:33 Ondansetron HCl (Zofran Inj) 4 mg Q6H PRN IV NAUSEA AND/OR VOMITING Last administered on 08/05/17 18:21; Admin Dose 4 MG; Start 08/04/17 at 13:00 Acetaminophen (Tylenol Tab) 650 mg Q6H PRN PO PAIN LEVEL 1-3 OR FEVER Last administered on 08/07/17 01:33; Admin Dose 650 MG; Start 08/04/17 at 13:00 Acetaminophen (Tylenol Supp) 650 mg Q6H PRN [place] PAIN LEVEL 1-3 OR FEVER; Start 08/04/17 at 13:00 Famotidine (Pepcid) 20 mg Q12 PO Last administered on 08/07/17 08:50; Admin Dose 20 MG; Start 08/04/17 at 21:00 Diagnostic Test (Pha) (Accu-Chek) 1 ea 02 XX Last administered on 08/05/17 02: 17; Admin Dose 1 EA; Start 08/05/17 at 02:00 Linagliptin (Tradjenta) 5 mg DAILY PO Last administered on 08/07/17 08:49; Admin Dose 5 MG; Start 08/05/17 at 09:00 Valsartan (Diovan) 160 mg DAILY PO Last administered on 08/07/17 08:49; Admin Dose 160 MG; Start 08/05/17 at 09:00 Miscellaneous Information 1 ea NOTE XX ; Start 08/04/17 at 14:00 Glucose (Glutose) 15 gm Q15M PRN PO DECREASED GLUCOSE; Start 08/04/17 at 14:00 Glucose (Glutose) 22.5 gm Q15M PRN PO DECREASED GLUCOSE; Start 08/04/17 at 14: 00 Dextrose (D50w Syringe) 25 ml Q15M PRN IV DECREASED GLUCOSE; Start 08/04/17 at 14:00 Dextrose (D50w Syringe) 50 ml Q15M PRN IV DECREASED GLUCOSE; Start 08/04/17 at 14:00 Glucagon (Glucagen) 1 mg Q15M PRN IM DECREASED GLUCOSE; Start 08/04/17 at 14:00 Glucose 15 gm 15 gm Q15M PRN BUCCAL DECREASED GLUCOSE; Start 08/04/17 at 14:00 Ciprofloxacin/ Dextrose (Cipro Ivpb) 200 ml @ 200 mls/hr Q12 IVPB Last administered on 08/07/17 08:49; Admin Dose 200 MLS/HR; Start 08/06/17 at 10: 00 Insulin Glargine (Lantus) 7 unit DAILY@20 SC Last administered on 08/06/17 20 :25; Admin Dose 7 UNIT; Start 08/06/17 at 20:00 MIGDALIA EDWARD NP Aug 07, 2017 09:02
[2017-08-07 14:00] VITALS: BP 139/74; RESP 18
[2017-08-07] MEDS: CIPROFLOXACIN 500 MG TAB PO SCH (17:57)
[2017-08-07] MEDS ORDERED: CIPROFLOXACIN 500 MG TAB NGT SCH (18:00)
[2017-08-07] MEDS: ONDANSETRON 4 MG INJ IV PRN (18:15)
--- NOTE | 2017-08-07 19:35 | RADRPT ---
PROCEDURE: Renal US. CLINICAL INDICATION: Flank pain TECHNIQUE: Multiple sonographic images of the kidneys were obtained. The images were reviewed on a PACS workstation. COMPARISON: No prior studies are available for comparison. FINDINGS: Both kidneys are normal in echogenicity. There is normal renal cortical thickness without focal thi nning or scarring. No solid renal masses are identified. There is mild left hydronephrosis. No obs tructing renal calculus is not visualized. The right collecting system is normal in caliber. The right kidney measures 12.2 cm, and the left kidney measures 12.3 cm. Spot images of the pelvis demonstrating normally distended bladder with smooth contours. IMPRESSION: 1. Mild left hydronephrosis. Obstructing renal calculus/process is not visualized by ultrasound. 2. Normal right kidney and collecting system. 3. Bladder grossly unremarkable RPTAT: HH .Joseph Harris MD, Date Time Electronically viewed and signed by .Joseph Harris MD, on 08/07/2017 19:35 .W/
--- NOTE | 2017-08-07 19:40 | PN ---
DATE: 08/07/2017 SUBJECTIVE: No acute changes overnight. The patient is alert, feels much better, looks comfortable . No fevers overnight. LABORATORY: WBC today 7.1, no shift, no bands. BUN 11, creatinine 0.74. MICROBIOLOGY: Blood cultures since admission and urine culture growing E. coli susceptible essentia lly to all antibiotics, intermittently sensitive to Ancef. ANTIMICROBIALS: The patient is on ciprofloxacin. PHYSICAL EXAMINATION: GENERAL: This is an obese, well-developed, elderly, [place]-speaking woman who is awake, in no dist ress. HEENT: Head atraumatic, normocephalic. Sclerae anicteric. Buccal mucosa pink. NECK: Supple. CHEST: Rise symmetrical. Breath sounds clear. HEART: S1, S2. ABDOMEN: Soft. Bowel tones present. EXTREMITIES: Without cyanosis. ASSESSMENT: 1. Escherichia coli urinary tract infection with bacteremia. 2. Status post sepsis. 3. Diabetes. 4. Hypertension. PLAN: The patient is doing better. We are going to repeat blood cultures. Change ciprofloxacin to p.o. Continue supportive care. Anticipate treating with 2 weeks of antibiotics. Dictated By: MELVI CALDWELL [employer] F[employer]ER AND CHIEF [employer]ATEGY OFFICER for KAMILA GARCIA MD NI/NTS Conf#: [id number] DID#: [id number] CC: KAVEH MCCALL MD;*EndCC*
[2017-08-07 20:27] VITALS: BP 140/63; RESP 16
[2017-08-07] MEDS: INSULIN GLARGINE [LANtus] 3 ML PEN SC SCH (20:30)
[2017-08-08] MEDS: SOD CHLORIDE 0.9% 1,000 ML IV SCH ×4 (00:30→17:07)
[2017-08-08] MEDS: ACCU-CHEK XX SCH (01:27)
[2017-08-08 02:39] VITALS: BP 99/51; RESP 16
[2017-08-08 05:17] LABS: BASOPHILS % 0.4 % (0.0-2.0); EOSINOPHILS # 0.2 10^3/ul (0.0-0.5); EOSINOPHILS % 2.1 % (0.0-7.0); HEMATOCRIT 34.5 % (37.0-47.0); HEMOGLOBIN 11.2 g/dl (12.0-16.0); LYMPHOCYTES # 1.3 10^3/ul (0.8-2.9); LYMPHOCYTES % 17.4 % (15.0-51.0); MEAN CORPUSCULAR HEMOGLOBIN 29.6 pg (29.0-33.0); MEAN CORPUSCULAR HGB CONC 32.5 g/dl (32.0-37.0); MONOCYTE # 0.7 10^3/ul (0.3-0.9); MONOCYTES % 8.7 % (0.0-11.0); NEUTROPHIL # 5.3 10^3/ul (1.6-7.5); NEUTROPHILS % 70.3 % (39.0-77.0); PLATELET COUNT 154 10^3/UL (140-415); RED BLOOD COUNT 3.79 10^6/ul (4.20-5.40); RED CELL DISTRIBUTION WIDTH 13.4 % (11.5-14.5); WHITE BLOOD COUNT 7.6 10^3/ul (4.8-10.8)
[2017-08-08] MEDS: CIPROFLOXACIN 500 MG TAB PO SCH ×2 (05:48→06:46)
[2017-08-08 06:15] LABS: CALCIUM 8.1 mg/dl (8.4-10.2); CREATININE 0.68 mg/dl (0.44-1.00); POTASSIUM 3.7 mmol/L (3.5-5.1)
[2017-08-08 08:00] VITALS: BP_SYST 141; BP_SYST 160; BP_DIAS 62; BP_DIAS 88; RESP 18; RESP 20
[2017-08-08] MEDS: INSULIN ASPART [NOVOLOG] 3 ML PEN SC SCH ×3 (08:00→17:04)
[2017-08-08] MEDS: LINAGLIPTIN 5 MG TABLET PO SCH (09:06)
[2017-08-08] MEDS: FAMOTIDINE 20 MG TAB PO SCH (09:06)
[2017-08-08] MEDS: VALSARTAN 160 MG TAB PO SCH (09:09)
--- NOTE | 2017-08-08 10:06 | CONS ---
Date/Time of Note Date/Time of Note DATE: 08/08/17 TIME: 10:04 Assessment/Plan Assessment/Plan Chief Complaint/Hosp Course 66 yo F with PMH HTN, obesity, DM with fevers and generalized weakness found to have GNR UTI with sepsis and neutropenia. # Neutropenic fever -Interestingly when patient was admitted she had neutropenic fever with left shift indicating that the patient had neutropenic fever due to sepsis from likely GNR UTI. Patient had immature cells such as bands and hgb and plt were normal indicating this is unlikely a bone marrow production issue. -Furthermore patient's counts have resolved -No need for bone marrow biopsy at this as counts have reversed it's course. -Patient should improve as her infection is controlled; defer antibiotics to ID. will sign off for now. please reconsult with any concerns Thank you to Dr. Mccall for allowing me to participate in the care of this patient. Problems: Consultation Date/Type/Reason Admit Date/Time Aug 04, 2017 at 11:33 Initial Consult Date 08/05/17 Type of Consultation: Hematology Reason for Consultation neutropenia Referring Provider: KAVEH MCCALL 24 HR Interval Summary Free Text/Dictation pt still very weak. appears delirious. neutropenia has resolved Exam/Review of Systems Vital Signs Vitals Vital Signs Date Time Temp Pulse Resp B/P Pulse Ox O2 Delivery O2 Flow Rate FiO2 08/08/17 08:00 97.8 86 20 141/62 94 08/04/17 22:11 Room Air 08/04/17 14:28 2.0 Intake and Output 08/07/17 08/07/17 08/08/17 15:00 23:00 07:00 Intake Total 1050 ml 1260 ml 1600 ml Balance 1050 ml 1260 ml 1600 ml Exam Constitutional: alert, frail, oriented Psych: anxiety, confusion Head: normocephalic Eyes: nl conjunctiva ENMT: nl external ears & nose Neck: non-tender, supple Respiratory: clear to auscultation Cardiovascular: regular rate and rhythm Gastrointestinal: soft Musculoskeletal: nl extremities to inspection Results Result Diagram: 08/08/17 0456 08/08/17 0456 Results 24 hrs Laboratory Tests Test 08/07/17 11:30 08/07/17 17:09 08/07/17 18:20 08/07/17 20:24 Bedside Glucose 134 121 128 152 Test 08/08/17 04:56 08/08/17 08:04 White Blood Count 7.6 Red Blood Count 3.79 L Hemoglobin 11.2 L Hematocrit 34.5 L Mean Corpuscular Volume 91.0 Mean Corpuscular Hemoglobin 29.6 Mean Corpuscular Hemoglobin Concent 32.5 Red Cell Distribution Width 13.4 Platelet Count 154 Mean Platelet Volume 11.0 H Neutrophils % 70.3 Lymphocytes % 17.4 Monocytes % 8.7 Eosinophils % 2.1 Basophils % 0.4 Nucleated Red Blood Cells % 0.0 Neutrophils # 5.3 Lymphocytes # 1.3 Monocytes # 0.7 Eosinophils # 0.2 Basophils # 0.0 Nucleated Red Blood Cells # 0.0 Sodium Level 141 Potassium Level 3.7 Chloride Level 108 Carbon Dioxide Level 26 Anion Gap 11 Blood Urea Nitrogen 8 Creatinine 0.68 Glucose Level 146 Calcium Level 8.1 L Bedside Glucose 129 Medications Medications Current Medications Sodium Chloride (NS) 1,000 ml @ 100 mls/hr Q10H IV Last administered on 00:30; Admin Dose 100 MLS/HR; Start 08/04/17 at 12:33 Ondansetron HCl (Zofran Inj) 4 mg Q6H PRN IV NAUSEA AND/OR VOMITING Last administered on 08/07/17 18:15; Admin Dose 4 MG; Start 08/04/17 at 13:00 Acetaminophen (Tylenol Tab) 650 mg Q6H PRN PO PAIN LEVEL 1-3 OR FEVER Last administered on 08/07/17 20:20; Admin Dose 650 MG; Start 08/04/17 at 13:00 Acetaminophen (Tylenol Supp) 650 mg Q6H PRN [place] PAIN LEVEL 1-3 OR FEVER; Start 08/04/17 at 13:00 Famotidine (Pepcid) 20 mg Q12 PO Last administered on 08/08/17 09:06; Admin Dose 20 MG; Start 08/04/17 at 21:00 Diagnostic Test (Pha) (Accu-Chek) 1 ea 02 XX Last administered on 08/05/17 02: 17; Admin Dose 1 EA; Start 08/05/17 at 02:00 Linagliptin (Tradjenta) 5 mg DAILY PO Last administered on 08/08/17 09:06; Admin Dose 5 MG; Start 08/05/17 at 09:00 Valsartan (Diovan) 160 mg DAILY PO Last administered on 08/08/17 09:09; Admin Dose 160 MG; Start 08/05/17 at 09:00 Miscellaneous Information 1 ea NOTE XX ; Start 08/04/17 at 14:00 Glucose (Glutose) 15 gm Q15M PRN PO DECREASED GLUCOSE; Start 08/04/17 at 14:00 Glucose (Glutose) 22.5 gm Q15M PRN PO DECREASED GLUCOSE; Start 08/04/17 at 14: 00 Dextrose (D50w Syringe) 25 ml Q15M PRN IV DECREASED GLUCOSE; Start 08/04/17 at 14:00 Dextrose (D50w Syringe) 50 ml Q15M PRN IV DECREASED GLUCOSE; Start 08/04/17 at 14:00 Glucagon (Glucagen) 1 mg Q15M PRN IM DECREASED GLUCOSE; Start 08/04/17 at 14:00 Glucose (Glutose) 15 gm Q15M PRN BUCCAL DECREASED GLUCOSE; Start 08/04/17 at 14 :00 Insulin Glargine (Lantus) 7 unit DAILY@20 SC Last administered on 08/07/17 20 :30; Admin Dose 7 UNIT; Start 08/06/17 at 20:00 Ciprofloxacin (Cipro) 500 mg BID@06,18 PO Last administered on 08/08/17 06:46 ; Admin Dose 500 MG; Start 08/07/17 at 18:00 MARIE WHITTAKER M.D. Aug 08, 2017 10:06
--- NOTE | 2017-08-08 11:35 | PN ---
Date/Time of Note Date/Time of Note DATE: 08/08/17 TIME: 11:32 Assessment/Plan VTE Prophylaxis VTE Prophylaxis Intervention: ambulation Lines/Catheters [facility] Peripheral IV Urinary Cath still in place: No Assessment/Plan Chief Complaint/Hosp Course 66-year-old obese female with a past medical history of type 2 diabetes, hypertension presented to the emergency room for evaluation of fever and generalized weakness who was noted with sepsis with a positive urinalysis suggestive of acute urinary tract infection. 1. Acute E. coli pyelonephritis. Clinically improving. Status: Acute. -On Cipro. (Total days on antibiotic =5) 2. Status post sepsis with E. coli bacteremia, secondary to #1. White count normalized. Status: Acute 3. Metabolic acidosis with sepsis. Resolved. Status: Acute 4.Type 2 diabetes. A1c 6.5. With good glycemic control. Status: Chronic -Continue Tradjenta, Accu-Cheks/ISS/low-dose Lantus. -Carbohydrate controlled diet. 5. Essential hypertension. Stable. Status: Chronic -Continue home medications. 6. Obesity. -Weight reduction advised. 7. Fatty liver. -Weight reduction/lifestyle changes advised. After discussion with infectious team recommendation is to discharge patient on 10 more days on oral Cipro 750 mg twice daily. Will also have case management arrange home health safety evaluation with patient's pre-existing home health agency. Patient's daughter Jessica is in agreement with current plan. DVT prophylaxis: SCDs/Ambulation PUD prophylaxis: Pepcid. Patient is seen in collaboration with Dr. Boss Problems: Subjective 24 Hr Interval Summary Free Text/Dictation Patient is doing better. Exam/Review of Systems Vital Signs Vitals Vital Signs Date Time Temp Pulse Resp B/P Pulse Ox O2 Delivery O2 Flow Rate FiO2 08/08/17 08:00 97.8 86 20 141/62 94 08/04/17 22:11 Room Air 08/04/17 14:28 2.0 Intake and Output 08/07/17 08/07/17 08/08/17 15:00 23:00 07:00 Intake Total 1050 ml 1260 ml 1600 ml Balance 1050 ml 1260 ml 1600 ml Exam General: Obese female, not in any acute distress . HEENT: Normocephalic, Atraumatic, No laceration or hematoma; Eyes: PEERL, Conjunctiva clear, Anicteric sclera Neck: Supple without any lymphadenopathy, nontender, no JVD, no carotid bruits, trachea midline, no thyromegaly Cardiac: S1, S2 auscultated, regular rhythm and rate, no mumurs or gallop Pulmonary: Normal respiratory effort. Chest clear to auscultation bilaterally, no adventitious breath sounds GI: Abdomen obese to inspection. Soft, non tender, non- distended, no masses, no rebound tenderness or guarding. Bowel sounds active on all four quadrants Genitourinary: Deferred Extremities: With generalized weakness. No cyanosis, clubbing, or edema. Pulses [2+] bilaterally. Full ROM on all four extremities. No focal weakness appreciated. Neurologic: Alert to person, place, time, and situation. Skin: Clean,dry, and intact. No ecchymosis, no rashes, or lesions Results Result Diagram: 08/08/17 0456 08/08/17 0456 Results 24 hrs Laboratory Tests Test 08/07/17 17:09 08/07/17 18:20 08/07/17 20:24 08/08/17 04:56 Bedside Glucose 121 128 152 White Blood Count 7.6 Red Blood Count 3.79 L Hemoglobin 11.2 L Hematocrit 34.5 L Mean Corpuscular Volume 91.0 Mean Corpuscular Hemoglobin 29.6 Mean Corpuscular Hemoglobin Concent 32.5 Red Cell Distribution Width 13.4 Platelet Count 154 Mean Platelet Volume 11.0 H Neutrophils % 70.3 Lymphocytes % 17.4 Monocytes % 8.7 Eosinophils % 2.1 Basophils % 0.4 Nucleated Red Blood Cells % 0.0 Neutrophils # 5.3 Lymphocytes # 1.3 Monocytes # 0.7 Eosinophils # 0.2 Basophils # 0.0 Nucleated Red Blood Cells # 0.0 Sodium Level 141 Potassium Level 3.7 Chloride Level 108 Carbon Dioxide Level 26 Anion Gap 11 Blood Urea Nitrogen 8 Creatinine 0.68 Glucose Level 146 Calcium Level 8.1 L Test 08/08/17 08:04 Bedside Glucose 129 Medications Medications Current Medications Sodium Chloride (NS) 1,000 ml @ 100 mls/hr Q10H IV Last administered on t 00:30; Admin Dose 100 MLS/HR; Start 08/04/17 at 12:33 Ondansetron HCl (Zofran Inj) 4 mg Q6H PRN IV NAUSEA AND/OR VOMITING Last administered on 08/07/17 18:15; Admin Dose 4 MG; Start 08/04/17 at 13:00 Acetaminophen (Tylenol Tab) 650 mg Q6H PRN PO PAIN LEVEL 1-3 OR FEVER Last administered on 08/07/17 20:20; Admin Dose 650 MG; Start 08/04/17 at 13:00 Acetaminophen (Tylenol Supp) 650 mg Q6H PRN [place] PAIN LEVEL 1-3 OR FEVER; Start 08/04/17 at 13:00 Famotidine (Pepcid) 20 mg Q12 PO Last administered on 08/08/17 09:06; Admin Dose 20 MG; Start 08/04/17 at 21:00 Diagnostic Test (Pha) (Accu-Chek) 1 ea 02 XX Last administered on 08/05/17 02: 17; Admin Dose 1 EA; Start 08/05/17 at 02:00 Linagliptin (Tradjenta) 5 mg DAILY PO Last administered on 08/08/17 09:06; Admin Dose 5 MG; Start 08/05/17 at 09:00 Valsartan (Diovan) 160 mg DAILY PO Last administered on 08/08/17 09:09; Admin Dose 160 MG; Start 08/05/17 at 09:00 Miscellaneous Information 1 ea NOTE XX ; Start 08/04/17 at 14:00 Glucose (Glutose) 15 gm Q15M PRN PO DECREASED GLUCOSE; Start 08/04/17 at 14:00 Glucose (Glutose) 22.5 gm Q15M PRN PO DECREASED GLUCOSE; Start 08/04/17 at 14: 00 Dextrose (D50w Syringe) 25 ml Q15M PRN IV DECREASED GLUCOSE; Start 08/04/17 at 14:00 Dextrose (D50w Syringe) 50 ml Q15M PRN IV DECREASED GLUCOSE; Start 08/04/17 at 14:00 Glucagon (Glucagen) 1 mg Q15M PRN IM DECREASED GLUCOSE; Start 08/04/17 at 14:00 Glucose (Glutose) 15 gm Q15M PRN BUCCAL DECREASED GLUCOSE; Start 08/04/17 at 14 :00 Insulin Glargine (Lantus) 7 unit DAILY@20 SC Last administered on 08/07/17 20 :30; Admin Dose 7 UNIT; Start 08/06/17 at 20:00 Ciprofloxacin (Cipro) 500 mg BID@06,18 PO Last administered on 08/08/17t 06:46 ; Admin Dose 500 MG; Start 08/07/17 at 18:00 MIGDALIA EDWARD NP Aug 08, 2017 11:35 MIGDALIA EDWARD NP Aug 08, 2017 11:35
--- NOTE | 2017-08-08 11:46 | PDOCDIS ---
Discharge Instructions CONDITION Patient Condition: Stable HOME CARE INSTRUCTIONS: Special Diet: CARB CONTROL FOLLOW UP/APPOINTMENTS Follow-up Plan 1.Follow up with primary care physician in 1 week If you don't have one please let someone know, we can give you resources that may help you pick one. You may also call your insurance company to assign one to you. Review your medication list with your nurse before leaving and if you need new prescriptions please let your nurse know. I may have made changes to your home medications or given you new prescriptions, please let your primary doctor know as well. Stay compliant with your medications and report any side effects to your PCP or pharmacist. Return to the ER if you have any concerns and cannot reach your doctors or call your insurance company, they usually have a nurse that can help you. 2. Call 911 or go to the nearest emergency room if experiencing loss of consciousness, dizziness, chest pain, shortness of breath, vomiting/abdominal pain, speech difficulties, motor weakness or any unusual symptoms. MIGDALIA EDWARD NP Aug 08, 2017 11:46
[2017-08-08] MEDS ORDERED: CIPR750T3 PO (11:47)
[2017-08-08 14:00] VITALS: BP 160/82; RESP 18
--- NOTE | 2017-08-08 15:22 | CONS ---
Date/Time of Note Date/Time of Note DATE: 08/08/17 TIME: 15:20 Assessment/Plan Assessment/Plan Chief Complaint/Hosp Course SUBJECTIVE: No acute changes overnight. The patient is alert, feels good, wants to go home, no fevers MICROBIOLOGY: Blood cultures since admission and urine culture growing E. coli susceptible essentially to all antibiotics, intermittently sensitive to Ancef. ANTIMICROBIALS: The patient is on ciprofloxacin. PHYSICAL EXAMINATION: GENERAL: This is an obese, well-developed, elderly, Cymraes-speaking woman who is awake, in no distress. HEENT: Head atraumatic, normocephalic. Sclerae anicteric. Buccal mucosa pink. NECK: Supple. CHEST: Rise symmetrical. Breath sounds clear. HEART: S1, S2. ABDOMEN: Soft. Bowel tones present. EXTREMITIES: Without cyanosis. ASSESSMENT: 1. Escherichia coli urinary tract infection with bacteremia. 2. Status post sepsis. 3. Diabetes. 4. Hypertension. PLAN: The patient is doing better. Repeat blood cultures pending, ok dc on PO Cipro to complete 2 weeks. staff/pt and her daughter over the phone Problems: Consultation Date/Type/Reason Admit Date/Time Aug 04, 2017 at 11:33 Initial Consult Date 08/05/17 Type of Consultation: ID Referring Provider: KAVEH MCCALL Exam/Review of Systems Vital Signs Vitals Vital Signs Date Time Temp Pulse Resp B/P Pulse Ox O2 Delivery O2 Flow Rate FiO2 08/08/17 08:00 97.8 86 20 141/62 94 08/04/17 22:11 Room Air 08/04/17 14:28 2.0 Intake and Output 08/07/17 08/07/17 08/08/17 15:00 23:00 07:00 Intake Total 1050 ml 1260 ml 1600 ml Balance 1050 ml 1260 ml 1600 ml Results Result Diagram: 08/08/17 0456 08/08/17 0456 Results 24 hrs Laboratory Tests Test 08/07/17 17:09 08/07/17 18:20 08/07/17 20:24 08/08/17 04:56 Bedside Glucose 121 128 152 White Blood Count 7.6 Red Blood Count 3.79 L Hemoglobin 11.2 L Hematocrit 34.5 L Mean Corpuscular Volume 91.0 Mean Corpuscular Hemoglobin 29.6 Mean Corpuscular Hemoglobin Concent 32.5 Red Cell Distribution Width 13.4 Platelet Count 154 Mean Platelet Volume 11.0 H Neutrophils % 70.3 Lymphocytes % 17.4 Monocytes % 8.7 Eosinophils % 2.1 Basophils % 0.4 Nucleated Red Blood Cells % 0.0 Neutrophils # 5.3 Lymphocytes # 1.3 Monocytes # 0.7 Eosinophils # 0.2 Basophils # 0.0 Nucleated Red Blood Cells # 0.0 Sodium Level 141 Potassium Level 3.7 Chloride Level 108 Carbon Dioxide Level 26 Anion Gap 11 Blood Urea Nitrogen 8 Creatinine 0.68 Glucose Level 146 Calcium Level 8.1 L Test 08/08/17 08:04 08/08/17 12:07 Bedside Glucose 129 130 Medications Medications Current Medications Sodium Chloride (NS) 1,000 ml @ 100 mls/hr Q10H IV Last administered on 11:57; Admin Dose 100 MLS/HR; Start 08/04/17 at 12:33 Ondansetron HCl (Zofran Inj) 4 mg Q6H PRN IV NAUSEA AND/OR VOMITING Last administered on 08/07/17 18:15; Admin Dose 4 MG; Start 08/04/17 at 13:00 Acetaminophen (Tylenol Tab) 650 mg Q6H PRN PO PAIN LEVEL 1-3 OR FEVER Last administered on 08/07/17 20:20; Admin Dose 650 MG; Start 08/04/17 at 13:00 Acetaminophen (Tylenol Supp) 650 mg Q6H PRN [place] PAIN LEVEL 1-3 OR FEVER; Start 08/04/17 at 13:00 Famotidine (Pepcid) 20 mg Q12 PO Last administered on 08/08/17 09:06; Admin Dose 20 MG; Start 08/04/17 at 21:00 Diagnostic Test (Pha) (Accu-Chek) 1 ea 02 XX Last administered on 08/05/17 02: 17; Admin Dose 1 EA; Start 08/05/17 at 02:00 Linagliptin (Tradjenta) 5 mg DAILY PO Last administered on 08/08/17 09:06; Admin Dose 5 MG; Start 08/05/17 at 09:00 Valsartan (Diovan) 160 mg DAILY PO Last administered on 08/08/17 09:09; Admin Dose 160 MG; Start 08/05/17 at 09:00 Miscellaneous Information 1 ea NOTE XX ; Start 08/04/17 at 14:00 Glucose (Glutose) 15 gm Q15M PRN PO DECREASED GLUCOSE; Start 08/04/17 at 14:00 Glucose (Glutose) 22.5 gm Q15M PRN PO DECREASED GLUCOSE; Start 08/04/17 at 14: 00 Dextrose (D50w Syringe) 25 ml Q15M PRN IV DECREASED GLUCOSE; Start 08/04/17 at 14:00 Dextrose (D50w Syringe) 50 ml Q15M PRN IV DECREASED GLUCOSE; Start 08/04/17 at 14:00 Glucagon (Glucagen) 1 mg Q15M PRN IM DECREASED GLUCOSE; Start 08/04/17 at 14:00 Glucose (Glutose) 15 gm Q15M PRN BUCCAL DECREASED GLUCOSE; Start 08/04/17 at 14 :00 Insulin Glargine (Lantus) 7 unit DAILY@20 SC Last administered on 08/07/17t 20 :30; Admin Dose 7 UNIT; Start 08/06/17 at 20:00 Ciprofloxacin (Cipro) 750 mg BID@06,18 PO ; Start 08/08/17 at 18:00 MELVI CALDWELL NP Aug 08, 2017 15:22
--- NOTE | 2017-08-08 15:40 | DS ---
Date/Time of Note Date/Time of Note DATE: 08/08/17 TIME: 15:38 Discharge Summary Admission/Discharge Info Admit Date/Time Aug 04, 2017 at 11:33 Discharge Date/Time Discharge Diagnosis 1. Status post sepsis with E. coli bacteremia secondary to E. coli pyelonephritis. 2. Type 2 diabetes 3. Essential hypertension 4. Obesity 5. Fatty liver. Patient Condition: Stable Consults Dr. Golden, infectious disease. Procedures 08/05/2017. CT abdomen and pelvis. IMPRESSION: 1. Fatty metamorphosis of the liver. 2. Small left renal sinus cysts. 3. Mild left perinephric edema which may indicate pyelonephritis. Clinical correlation advised. 4. Atherosclerosis. 5. Normal appendix. 6. Mild degenerative changes of the spine and hips. 7. Otherwise unremarkable CT scan of the abdomen and pelvis. Hospital Course 66-year-old obese female with a past medical history of type 2 diabetes, hypertension presented to the emergency room for evaluation of fever and generalized weakness who was noted with sepsis with a positive urinalysis suggestive of acute urinary tract infection. Patient had blood and urine cultures positive for E. coli pyelonephritis. Patient had ID evaluation. She was treated with 5 days IV antibiotics followed by transition to oral Cipro. She was continued on home medications for diabetes, hypertension. Patient was also counseled on weight reduction. Sepsis resolved. Patient is feeling back to her baseline and ready for discharge. As per ID recommendation, patient was discharged home on oral Cipro 750 mg for 10 more days. Repeat blood culture was pending at this time which as per [employer] PRESIDENT [employer] MARKETING Deidra, will monitor and will call patient's daughter if any changes in antibiotics required. During the course of hospitalization, patient's condition was periodically updated with her daughter over the phone. Patient and her daughter requested for home health upon discharge. A physical therapy evaluation was ordered. Case management was consulted for arranging home health for possible home safety evaluation. Disposition: Home with home health. Patient and family verbalized discharge instructions. Approximately 60 minute was spent in coordinating the discharge on this patient. Patient was seen in collaboration with [facility] Ciprofloxacin Hcl* (Ciprofloxacin Hcl*) 750 Mg Tablet, 750 MG PO BID for 10 Days , #20 TAB Prov:MIGDALIA EDWARD V. [employer] 08/08/17 Reported Medications Valsartan* (Diovan*) 160 Mg Tablet, 160 MG PO DAILY, TAB 12/8/17 Canagliflozin (Invokana) 100 Mg Tablet, 100 MG PO DAILY, TAB 08/04/17 Linagliptin (TRADJENTA) 5 Mg Tablet, 5 MG PO DAILY, TAB 08/04/17 Glipizide* (Glipizide*) 5 Mg Tablet, 5 MG PO BID, TAB 08/04/17 Metformin* (Glucophage*) 1,000 Mg Tablet, 1000 MG PO BID, #60 TAB 08/04/17 Follow-up Plan 1.Follow up with primary care physician in 1 week If you don't have one please let someone know, we can give you resources that may help you pick one. You may also call your insurance company to assign one to you. Review your medication list with your nurse before leaving and if you need new prescriptions please let your nurse know. I may have made changes to your home medications or given you new prescriptions, please let your primary doctor know as well. Stay compliant with your medications and report any side effects to your PCP or pharmacist. Return to the ER if you have any concerns and cannot reach your doctors or call your insurance company, they usually have a nurse that can help you. 2. Call 911 or go to the nearest emergency room if experiencing loss of consciousness, dizziness, chest pain, shortness of breath, vomiting/abdominal pain, speech difficulties, motor weakness or any unusual symptoms. Primary Care Provider Erik Stahl Pending Labs Laboratory Tests Test 08/07/17 17:09 08/07/17 18:20 08/07/17 20:24 08/08/17 04:56 Bedside Glucose 121mg/dL (70-220) 128mg/dL (70-220) 152mg/dL (70-220) White Blood Count 7.610^3/ul (4.8-10.8) Red Blood Count 3.7910^6/ul (4.20-5.40) Hemoglobin 11.2g/dl (12.0-16.0) Hematocrit 34.5% (37.0-47.0) Mean Corpuscular Volume 91.0fl (82.0-101.0) Mean Corpuscular Hemoglobin 29.6pg (29.0-33.0) Mean Corpuscular Hemoglobin Concent 32.5g/dl (32.0-37.0) Red Cell Distribution Width 13.4% (11.5-14.5) Platelet Count 99617^3/UL (140-415) Mean Platelet Volume 11.0fl (7.4-10.4) Neutrophils % 70.3% (39.0-77.0) Lymphocytes % 17.4% (15.0-51.0) Monocytes % 8.7% (0.0-11.0) Eosinophils % 2.1% (0.0-7.0) Basophils % 0.4% (0.0-2.0) Nucleated Red Blood Cells % 0.0/100WBC (0.0-0.0) Neutrophils # 5.310^3/ul (1.6-7.5) Lymphocytes # 1.310^3/ul (0.8-2.9) Monocytes # 0.710^3/ul (0.3-0.9) Eosinophils # 0.210^3/ul (0.0-0.5) Basophils # 0.010^3/ul (0.0-0.1) Nucleated Red Blood Cells # 0.010^3/ul (0.0-0.0) Sodium Level 141mmol/L (135-144) Potassium Level 3.7mmol/L (3.5-5.1) Chloride Level 108mmol/L (97-110) Carbon Dioxide Level 26mmol/L (21-31) Anion Gap 11 (8-16) Blood Urea Nitrogen 8mg/dl (7-20) Creatinine 0.68mg/dl (0.44-1.00) Glucose Level 146mg/dl (70-220) Calcium Level 8.1mg/dl (8.4-10.2) Test 08/08/17 08:04 08/08/17 12:07 Bedside Glucose 129mg/dL (70-220) 130mg/dL (70-220) MIGDALIA EDWARD NP Aug 08, 2017 15:40
[2017-08-08 18:00] VITALS: BP 125/65; PULSE 88; RESP 18
[2017-08-08] MEDS ORDERED: CIPROFLOXACIN 250 MG TAB PO SCH (18:00)
== END 2017-08-08 18:29 | disposition home or self-care (01) | DRG 872 ==
LOC: E/R 07:55 → PP2 11:33
PROVIDERS: ADMIT Family Medicine; ATTEND Family Medicine
DX: A41.51 Sepsis due to Escherichia coli [E. coli] (principal); E87.2 Acidosis; D70.9 Neutropenia, unspecified; E11.65 Type 2 diabetes mellitus with hyperglycemia; N39.0 Urinary tract infection, site not specified; N10 Acute pyelonephritis; I10 Essential (primary) hypertension; R65.20 Severe sepsis without septic shock; R50.81 Fever presenting with conditions classified elsewhere; E66.9 Obesity, unspecified; Z68.35 Body mass index [BMI] 35.0-35.9, adult; K76.0 Fatty (change of) liver, not elsewhere classified
CPT/HCPCS: 36415; 71010; 74176; 76775; 80048; 80053; 80061; 81001; 82962; 83036; 83605; 83690; 83735; 84100; 84443; 85025; 87040; 87086; 87400; 90686; 96372; 96374; 96375; 97163; J0500; J0692; J0744; J1815; J1885; J2405; J7030